=== PATIENT | female | born 1945 | race Caucasian/White ===

== ENCOUNTER 2016-07-07 07:28 | Emergency (ER) | payer MEDICARE, OTHER ==
[2016-07-07 08:23] LABS: Hematocrit 38.9 % (37.0-47.0); Hemoglobin 12.5 gm/dL (12.5-16.0); Mean Cell Volume 87.6 fl (78-100); Mean Corpuscular Hemoglobin 28.2 pg (27-31); Mean Corpuscular Hgb Conc 32.1 g/dl (32-36); Neutrophil # 8.8 K/mm3 (1.3-6.0); Neutrophil % 86.5 % (42-75.0); Platelet Count 325 K/mm3 (150-450); Red Blood Count 4.44 M/mm3 (4.2-5.4); Red Cell Distribution Width 13.6 % (11.5-14.0); White Blood Count 10.2 K/mm3 (4.0-10.5)
[2016-07-07 08:35] LABS: BUN/Creatinine Ratio 10.1 (9.0-21.6); Carbon Dioxide 26.2 mmol/L (24-32.6); Potassium 3.8 mmol/L (3.4-4.6)
[2016-07-07 08:36] LABS: Albumin * 3.3 gm/dl (3.4-5.0); Anion Gap 16.6 mmol/L (6.8-13.8); Bilirubin, Total 0.5 mg/dL (0.0-1.1); Calcium * 8.8 mg/dL (7.9-10.9); Total Protein 7.6 gm/dL (6.2-8.2)
[2016-07-07 09:03] VITALS: BP 146/82
--- NOTE | 2016-07-07 09:14 | ERNOTE ---
ENT HPI Date of Service: 07/07/16 Time Seen by Provider: 07/07/16 09:04 Source: patient, RN notes reviewed Exam Limitations: no limitations - Immun/Allergies/Home Medications Immunizations: IMMUNIZATION HX History of Influenza Vaccine No Hx Pneumococcal Vaccination No Allergies/Adverse Reactions: Allergies Allergy/AdvReac Type Severity Reaction Status Date / Time acetaminophen [From Tylenol] Allergy Severe Swelling Verified 07/07/16 08:05 of Throat aspirin Allergy Severe Anaphylaxis Verified 07/07/16 08:05 [From Aspirin Regimen [place]/Calcium] ibuprofen Allergy Severe Anaphylaxis Verified 07/07/16 08:05 NSAIDS (Non-Steroidal Allergy Severe Anaphylaxis Verified 07/07/16 08:05 Anti-Inflamma azithromycin [From Zithromax] AdvReac Mild MIGRAINES, Verified 07/07/16 08:05 DIARRHEA tramadol AdvReac Mild URINARY Verified 07/07/16 08:05 INCONTINENCE iv contrast AdvReac Intermediate PASSES OUT Uncoded 07/07/16 08:05 Home Medications: HOME MEDICATIONS Albuterol Sulfate [Albuterol Sulfate 2.5 MG/0.5ML] 1 vial IH Q4H PRN 05/28/15 [ Last Taken Unknown] Atorvastatin Calcium [Lipitor] 40 mg PO HS 05/28/15 [Last Taken Unknown] Eletriptan HBr [Relpax] 40 mg PO PRN PRN 05/28/15 [Last Taken Unknown] Esomeprazole Magnesium [Nexium] 40 mg PO BID 05/28/15 [Last Taken Unknown] Fluticasone Propionate [Flovent Hfa] 2 puff IH BID 05/28/15 [Last Taken Unknown] Ipratropium/Albuterol Sulfate [Combivent Respimat Inhal [place]] 1 puff IH QID [Last Taken Unknown] Levothyroxine Sodium [Synthroid] 25 mcg PO DAILY 05/28/15 [Last Taken Unknown] Losartan/Hydrochlorothiazide [Hyzaar 50-12.5 Tablet] 1 each PO DAILY 05/28/15 [ Last Taken Unknown] Metoprolol Tartrate [Lopressor] 25 mg PO BID 05/28/15 [Last Taken 08/17/15 07:00 ] Montelukast Sodium [Singulair] 10 mg PO HS 05/28/15 [Last Taken Unknown] Nortriptyline HCl 50 mg PO HS 05/28/15 [Last Taken Unknown] Salmeterol Xinafoate [Serevent Diskus] 1 puff IH BID 05/28/15 [Last Taken Unknown] metFORMIN HCL [Glucophage] 500 mg PO BIDWM 04/19/16 [Last Taken Unknown] - History of Present Illness Date (Duration): 07/05/16 Severity: Present: mild ENT Location: Present: throat Associated Symptoms - ENT: Reports: cough, sore throat, nasal congestion/ drainage. Denies: fever, voice change, drooling, facial pain/swelling, tooth pain, jaw swelling, change in hearing, ear drainage, headache, foreign body Review of Systems - Review of Systems Constitutional: Absent: fever, chills, diaphoresis, weakness, fatigue, malaise ENT: Present: sore throat. Absent: ear pain, ear discharge, nose pain Cardiology: Absent: chest pain, palpitations Gastrointestinal/Abdominal: Absent: nausea, vomiting, abdominal pain Musculoskeletal: Absent: back pain, muscle pain, muscle stiffness, neck pain Skin: Absent: rash, dryness All Other Systems: All systems neg except as marked - Patient's Past Medical History Patient History - Medical: Anxiety, Diabetes Type 2, Depression, GERD, Hypothyroidism, Migraines, Other Patient History - Cardiac/Respiratory: Asthma, COPD, Hypertension, Hyperlipidemia Patient History - Cancer: Cervical Patient History - Surgical Procedures: Cataracts, Colonoscopy, Cardiac stent, EGD, Hysterectomy, Tubal Ligation, Other Patient History - Other: None - Family History Father Family History - Medical: No pertinent hx Family History - Cardiac/Respiratory: No pertinent hx Mother Family History - Medical: - Social History Living Situations: home Alcohol Use: none Drug Use: none - Immunizations Hx Pneumococcal Vaccination: No History of Influenza Vaccine: No Physical Exam - Physical Exam General Appearance: Present: wd/wn, alert - with a, no apparent distress Ears, Nose, Throat: Present: normal ENT inspection, hearing grossly normal - [place], normal pharynx [place] will hours 20 minutes Neck: Present: normal inspection, nontender, supple, full range of motion Respiratory: Present: no respiratory distress - the, normal breath sounds, no accessory muscle use, chest nontender, lungs clear Cardiovascular/Chest: Present: regular rate, rhythm, no murmur, normal peripheral pulses Gastrointestinal/Abdominal: Present: normal bowel sounds, nontender, nondistended - bruises, soft, no organomegaly - Broda Back Exam: Present: normal inspection, normal range of motion, no CVA tenderness , no vertebral tenderness Extremity Exam: Present: normal inspection - [place], non-tender, no edema, normal range of motion - where he lives in Neurological Exam: Present: alert, oriented, normal mood/affect, no motor/ sensory deficits Skin Exam: Present: normal color, warm/dry - A Lymphatic Exam: Present: no adenopathy ED Progress - Results and Orders Patient's Lab Results:: I have reviewed the patient's lab results. - Vital Signs Patient's Vital Signs:: I have reviewed the patient's vital signs. Vital Signs: Vital Signs 07/07/16 07/07/16 08:01 09:01 Temperature 37.7 C H Pulse Rate 85 84 Respiratory 12 12 Rate Blood Pressure 141/88 146/82 O2 Sat by Pulse 93 98 Oximetry - Progress/Reassessment Chief Complaint: Sore Throat Progress:: Unchanged - patient doing well reviewed the labs most likely viral treated as such continue to push fluids follow-up family doctor in 2-3 days returning back to the ER with a change or worsening symptoms - Transfer of Care Expected Disposition: Discharge Departure Clinical Impression: Sore throat (viral), Bronchitis, Diabetes - Departure Disposition: Home self-care Condition: Stable Instructions: Acute Bronchitis, Viral Respiratory Infection, [id number] Additional Instructions: Follow-up with your primary care doctor in 2-3 Return back to the ER with any change or worsening symptoms Tylenol and Motrin as needed Referrals: Angel Kendall MD [Primary Care Provider] -
== END 2016-07-07 09:11 | disposition home or self-care (01) ==
LOC: ER 07:28
DX: J40 Bronchitis, not specified as acute or chronic (principal); J02.8 Acute pharyngitis due to other specified organisms; B97.89 Other viral agents as the cause of diseases classified elsewhere; E11.9 Type 2 diabetes mellitus without complications; Z85.41 Personal history of malignant neoplasm of cervix uteri; Z95.5 Presence of coronary angioplasty implant and graft; E03.9 Hypothyroidism, unspecified; J45.909 Unspecified asthma, uncomplicated; J44.9 Chronic obstructive pulmonary disease, unspecified; K21.9 Gastro-esophageal reflux disease without esophagitis; E78.5 Hyperlipidemia, unspecified; I10 Essential (primary) hypertension; F32.9 Major depressive disorder, single episode, unspecified; G43.909 Migraine, unspecified, not intractable, without status migrainosus

== ENCOUNTER 2016-08-18 07:51 | Inpatient (IN) | payer MEDICARE, OTHER ==
[~2016-08-18 07:51] MED LIST: MORPHINE SULFATE 15 MG TABLET.SA PO PRN; RINGERS SOLUTION,LACTATED 1,000 ML IV PRN; ROPIVACAINE HCL/PF 100 MG, EPINEPHrine 0.2 MG in NORMAL SALINE 100 ML IJ PRN; ceFAZolin SODIUM 1 GM VIAL IV PRN
--- OUTSIDE RECORDS SUMMARY | 2016-08-18 07:57 | XMS REPORT | Continuity of Care Document ---
:1945 Author Organization [facility] [place] [address] Care Team Providers Name Role Phone Unavailable Primary Care Provider Unavailable Source Comments This disclosure is being made pursuant to the [employer] program and maynot contain all information available regarding this patient.[facility] Active Allergies and Adverse Reactions Not on File Current Medications Be aware that medications may not be up to date as of this document. Alwaysverify current medications with the patient. Not on file Active Problems Not on file Social History Tobacco Use Types Packs/Day Years Used Date Never Assessed Plan of Care Health Maintenance Due Date Last Done Comments Retired-Pertussis Vaccine Adult 1966 Retired-Tetanus Vaccine Adult 1966 Mammogram 1987 Colonoscopy 1997 Well Adult Visit 1997 Zoster Vaccine 60+ 2007 Bone Density 2012 Retired-Pneumococcal 23 Vaccine-65+ yo 2012 Retired-INFLUENZA VACCINE 02/06/2015 Results from Last 3 Months Not on file
--- OUTSIDE RECORDS SUMMARY | 2016-08-18 07:57 | XMS REPORT | Continuity of Care Document ---
:1945 Author Organization [facility] ([facility]) [place] [address] Phone [phone] Care Team Providers Name Role Phone LianAngel key Primary Care Provider [phone] Source Comments This disclosure is being made pursuant to the Care Everywhere program, applicable federal and state laws, and may not contain all informaitonavailable regarding this patient.[facility] ([facility]) Active Allergies and Adverse Reactions Allergen Noted Date Severity Reactions Comments Acetaminophen Urticaria (Hives) Aspirin Nausea & Vomiting,Weakness Azithromycin 11/28/2015 Unknown Ibuprofen 09/04/2011 Upper Airway Edema Advil also Iodine OTHER PASSED OUT Current Medications Prescription Sig. Disp. Refills Start Date End Date Status buPROPion (WELLBUTRIN XL) Take 150 mg by Active 150 mg extended release mouth Every tablet morning. esomeprazole (NEXIUM) 40 Take 40 mg by Active mg EC capsule mouth daily. metoPROLol 25 mg XL Take 25 mg by Active tablet mouth 2 times daily. losartan-hydrochlorothiaz Take 1 Tab by Active tiffany (HYZAAR) 50-12.5 mg mouth daily. per tablet montelukast (SINGULAIR) Take 10 mg by Active 10 mg tablet mouth daily. simvastatin 80 mg tablet Take 80 mg by Active mouth every evening. dihydroergotamine use 1 [place] into Active (MIGRANAL) 0.5 mg/pump the nose as Act. nasal spray needed. salmeterol (SEREVENT Use 1 Puff by Active DISKUS) 50 mcg/dose inhalation 2 times diskus inhaler daily. fluticasone (FLOVENT HFA) Use 2 Puffs by Active 220 mcg/actuation inhaler inhalation every 12 hours. tiotropium (SPIRIVA) 18 Use 18 mcg by Active mcg inhalation capsule inhalation daily. ALBUTEROL SULFATE (PROAIR Use 8.5 g by Active HFA INH) inhalation as needed. cyanocobalamin (VITAMIN Take 1,000 mcg by Active B-12) 1,000 mcg tablet mouth daily. magnesium citrate Take 296 mL by 296 mL 0 07/03/2015 Active solution mouth once. polyethylene glycol 3350 Take 2 scoops 510 g 11 11/20/2015 Active (MIRALAX) 17 gram/dose following powder breakfast, lunch, and dinner each day starting 3 days before. May be mixed in 16 oz of water, ice tea, or broth Active Problems Problem Noted Date Hypertension, essential 09/04/2011 Sleep apnea 09/04/2011 Overview: Awaiting fitting for CPAP GERD (gastroesophageal reflux disease) 09/04/2011 Overview: Nexium 40 mg BID Hypercholesterolemia 09/04/2011 Asthma 09/04/2011 Generalized headaches 09/04/2011 Migraines 09/04/2011 History of cervical cancer 09/04/2011 Overview: THOR 1989 Depression 09/04/2011 Social History Tobacco Use Types Packs/Day Years Used Date Former Smoker Cigarettes 0.5 10 Quit: 11/29/1983 Smokeless Tobacco: Never Used Alcohol Use Drinks/Week oz/Week Comments No Last Filed Vital Signs Vital Sign Reading Time Taken Blood Pressure 147/75 04/19/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 Pulse 72 04/19/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 Temperature 36.7 C (98.1 F) 04/19/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 Respiratory Rate 20 04/19/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 Height 1.499 m (4' 11.02") 07/03/2015 12:08 PM 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
--- NOTE | 2016-08-18 10:03 | PREOP NOTE ---
Preoperative Progress Note - Preoperative Changes Changes to Preop Condition?: No Changes
[2016-08-18] MEDS ORDERED: RINGERS SOLUTION,LACTATED 1,000 ML IV ONE ×2 (10:30→11:35)
[2016-08-18] MEDS: TRANEXAMIC ACID 1,000 MG in NORMAL SALINE 100 ML IV PRN ×2 (11:36→12:14)
[2016-08-18] MEDS ORDERED: MAGNESIUM HYDROXIDE 30 ML UDC PO PRN (12:44)
[2016-08-18] MEDS ORDERED: ONDANSETRON HCL/PF 2 MG/ML VIAL IV PRN (12:44)
[2016-08-18] MEDS ORDERED: diphenhydrAMINE HCL 50 MG/ML VIAL IV PRN (12:44)
[2016-08-18] MEDS ORDERED: PROMETHAZINE HCL 5 MG in DEXTROSE 5 % IN WATER 50 ML IV PRN ×2 (12:44)
[2016-08-18] MEDS ORDERED: ZOLPIDEM TARTRATE 5 MG TABLET PO PRN (12:44)
[2016-08-18] MEDS ORDERED: MAG HYDROX/ALUMINUM HYD/SIMETH 30 ML UDC PO PRN (12:44)
[2016-08-18] MEDS ORDERED: ELETRIPTAN HBR 40 MG PO PRN (12:47)
[2016-08-18] MEDS ORDERED: ALBUTEROL SULFATE 2.5 MG/3 ML VIAL.NEB IH PRN (12:47)
--- NOTE | 2016-08-18 12:50 | OR ---
Operative Report - Dictated Report Narrative: Date: 08/18/2016 Preoperative diagnosis: Right Knee degenerative joint disease. Postoperative diagnosis: Right Knee degenerative joint disease. Procedure: Right Total knee arthroplasty. Surgeon: Franc Parrish M.D. Development Lead: John Ash PA-C Anesthesia: Spinal with regional block and local periarticular joint injection. Complications: None Specimens: Bone for disposal. Estimated blood loss: Minimal. Tourniquet time: 80 Minutes at 325 millimeters of mercury. Retained implants: Depuy Attune size 5 right lugged cemented posterior stabilized femoral component. Size 4 fixed-bearing cemented tibial platform. 5 by 5 millimeter posterior stabilized cross-linked tibial insert. 35 millimeter medialized patella button. Indications: Mrs. Omalley is a 71-year-old female who has had long-standing right knee pain. This patient was followed in my clinic for period of time with significant complaints of right knee pain consistent with arthritic changes. They had failed conservative measures including, but not limited to, activity modification, passage of time, medications, and other conservative measures. Patient wished to proceed with surgical treatment. The risks, benefits, and alternatives were discussed in clinic. The risks of , blood clots, bleeding, infection, nerve/tendon blood vessel/ injury, malposition of components, intraoperative fracture, postoperative limited range of motion, persistent pain, failure of components, and need for additional procedures. Patient wished to proceed consent was obtained after answering all questions. Procedure: After marking the correct extremity on the floor, the patient was taken to the operating room. A timeout was performed. IV antibiotics consisting of Ancef were administered prior to the procedure. A regional followed by spinal anesthetic was induced by anesthesia on the operative table with all bony prominences well-padded. Nino catheter was placed, and a bump was placed under the operative side buttock. SCDs and MALLORIE hose were utilized on the nonoperative leg. A well-padded tourniquet was applied to the operative thigh. The operative leg was then pre-scrubbed with shreya escalona prepped, and draped in a standard sterile fashion. After exsanguinating the extremity with an Esmarch bandage, the tourniquet was inflated. After marking out the anterior knee for standard incision centered over the patella, the skin was incised and dissected down to the joint retinaculum. The joint retinaculum was marked out as well as the horizontal axis of the patella, and a standard medial parapatellar arthrotomy was then made. The most proximal aspect of the quadriceps tendon and the patella tendon insertion were protected from release. A partial synovectomy was performed as well as a resection of the infrapatellar fat pad. The distal femoral fat pad proximal to the trochlea was also resected using cautery. The soft tissues were elevated off the medial aspect of the proximal tibia using a Sky elevator ensuring that we did not transect the medial collateral ligament. Upon initial evaluation range of motion was approximately 0 degrees to 120 degrees of flexion. There were signs of advanced arthrosis in the medial and patellofemoral joint spaces. There were large marginal osteophytes which were removed with a rongeur. The knee was hyperflexed and the patella was tucked laterally. Protecting the surrounding soft tissues with Homans, an entry drill was placed down the femoral canal using Whitesides line for guidance into the entry point. The intramedullary femoral alignment bob was utilized in order to cut the distal femur in 5 degrees of valgus resecting 10 millimeters of bone. Next the distal femur was sized to a size 5. A posterior referencing guide was utilized to place the distal femoral cutting block in 3 degrees of external rotation. This was pinned into place. The rotation was confirmed both visually and based on anatomic landmarks. The 4 in 1 cutting jig of the appropriate size was utilized in order to make all bony cuts. The angle wing was used to ensure no notching. Retractors were utilized in order to protect surrounding soft tissues. This cut did not result in any excessive notching. We then cut the box centered over the distal femur. This allowed for resection of the anterior and posterior cruciate ligaments. I then turned my attention to the preparation of the tibia. Using an extra medullary tibial alignment bob, 4 millimeters of bone was resected off the medial articular surface. This was made perpendicular to the mechanical axis of the joint with the alignment bob centered over the ankle mortise. The alignment bob was checked and was noted to be parallel to the mechanical axis, centered over the medial one third of the tibial tubercle, paralleling the anterior surface of the tibia. We then turned our attention to the remaining meniscus and soft tissues. These were removed while protecting the surrounding ligaments and soft tissues. The marginal osteophytes off the anterior, posterior, medial, lateral aspects of the femur and tibia were removed. The tibia was sized out to a size 4. Next the tibia was drilled and punched in an externally rotated position. Next the trial femur and a series of tibial inserts were utilized in order to allow for full extension and maximal flexion. It was found that a 5 millimeter insert gave the best range of motion and stability at multiple flexion points as well as at full extension there was less than 2 mm of gapping both medially and laterally. There is minimal anterior translation with the knee at 90 degrees of flexion and no signs of being able to dislocate the knee. The patella was then prepared. The initial thickness was 23 millimeters. This was reamed down to 13 millimeters parallel to the anterior surface of the patella. It was sized out to a size 35 medialized patella button. This was then drilled and trialed. Without any medial restraint the patella tracked appropriately and did not sublux or dislocate. At this point, it was felt these were the appropriate sized implants, and all trials were removed. The standard periarticular joint injection consisting of ropivacaine and epinephrine were injected into the periarticular joint tissues. The bony surfaces were thoroughly irrigated with a pulsatile-suction saline irrigation device. A bone plug from the prior resected anterior chamfer cut was placed into the drill hole at the distal femur. The bony surfaces were then dried in preparation for placement of the implants. The cement was vacuum mixed per the chair's instructions. The cement was placed on the dry bony surfaces and posterior aspect of the implants. The implants were impacted into place, removing all extruded cement. At this point anesthesia administered tranexamic acid per protocol intravenously. The knee was placed in extension with axial loading with the trial insert while the cement cured. Once the cement cured, all remaining extruded cement was removed. The knee was placed through a range of motion with the trial insert to ensure appropriate range of motion and stability. Final range of motion was approximately 0 to 120 degrees. The knee was again thoroughly irrigated with pulsatile saline lavage. The final polyethylene insert was then impacted into place ensuring no retained soft tissues. The remaining periarticular joint injection was injected. A medium Hemovac drain was placed exiting superior laterally. The knee was then placed over a triangle and the arthrotomy was closed with interrupted #1 Vicryl after thoroughly irrigating the joint. The deep and subcutaneous tissues were closed with interrupted oh and 3-0 Vicryl respectively. Skin was closed with a running subcutaneous 3-0 Monocryl and prineo dressing. 4 x 4's, ABD, Sof-Rol, and a full leg Shemar wrap were applied. All sponge, needle, blade, and instrument counts were correct prior to closing the wounds. Postoperative condition: The patient was awoken and transferred to the postanesthesia care unit in stable condition. Plan is to be admitted to the inpatient medical/surgical floor postoperatively for 24 hours of IV antibiotics , physical therapy, occupational therapy, and medical comanagement. Patient will be weightbearing as tolerated with range of motion as tolerated. DVT prophylaxis will be with SCDs, MALLORIE hose, and pharmacological anticoagulation. Anticipated hospital stay is approximately 2-4 days.
[2016-08-18] MEDS: RINGERS SOLUTION,LACTATED 1,000 ML IV PRN ×2 (14:36→23:51)
[2016-08-18] MEDS: MORPHINE SULFATE 10 MG/0.5 ML SYRINGE PO PRN (15:51)
[2016-08-18] MEDS: metFORMIN HCL 500 MG TABLET PO SCH (16:27)
[2016-08-18] MEDS: ceFAZolin SODIUM 1 GM in DEXTROSE 5 % IN WATER 100 ML IV SCH ×4 (16:28→23:03)
[2016-08-18] MEDS: ALBUTEROL SULFATE/IPRATROPIUM 3 ML NEBU IH SCH ×3 (16:34→18:27)
[2016-08-18] MEDS: BUDESONIDE 0.5 MG/2 ML VIAL.NEB IH SCH (18:28)
[2016-08-18] MEDS: DULoxetine HCL 30 MG CAPSULE.SA PO SCH (20:35)
[2016-08-18] MEDS: MORPHINE SULFATE 15 MG TABLET.SA PO SCH (20:36)
[2016-08-18] MEDS: NORTRIPTYLINE HCL 25 MG CAPSULE PO SCH (20:36)
[2016-08-18] MEDS: PANTOPRAZOLE SODIUM 40 MG TABLET.EC PO SCH (20:36)
[2016-08-18] MEDS: MONTELUKAST SODIUM 10 MG TABLET PO SCH (20:37)
[2016-08-18] MEDS: SENNOSIDES/DOCUSATE SODIUM 1 TAB TABLET PO SCH (20:37)
[2016-08-18] MEDS: METOPROLOL TARTRATE 25 MG TABLET PO SCH (20:38)
[2016-08-18] MEDS: ROSUVASTATIN CALCIUM 10 MG TABLET PO SCH (20:38)
[2016-08-18] MEDS: SALMETEROL XINAFOATE IH SCH (20:47)
[2016-08-18] MEDS: HYDROmorphone HCL 1 MG/ML DISP.SYRIN IV PRN (22:57)
[2016-08-19] MEDS: MORPHINE SULFATE 10 MG/0.5 ML SYRINGE PO PRN ×3 (02:26→18:18)
[2016-08-19] MEDS: HYDROmorphone HCL 1 MG/ML DISP.SYRIN IV PRN ×2 (04:22→07:49)
[2016-08-19] MEDS: ceFAZolin SODIUM 1 GM in DEXTROSE 5 % IN WATER 100 ML IV SCH ×2 (04:45)
[2016-08-19 05:55] LABS: Hematocrit 31.8 % (37.0-47.0); Hemoglobin 10.2 gm/dL (12.5-16.0); Mean Cell Volume 87.1 fl (78-100); Mean Corpuscular Hemoglobin 27.9 pg (27-31); Mean Corpuscular Hgb Conc 32.1 g/dl (32-36); Mean Platelet Volume 9.2 fl (6.0-9.5); Platelet Count 295 K/mm3 (150-450); Red Blood Count 3.65 M/mm3 (4.2-5.4); Red Cell Distribution Width 13.6 % (11.5-14.0); White Blood Count 11.7 K/mm3 (4.0-10.5)
[2016-08-19 06:04] LABS: BUN/Creatinine Ratio 12.6 (9.0-21.6); Calcium * 8.1 mg/dL (7.9-10.9); Carbon Dioxide 28.7 mmol/L (24-32.6); Estimated Creat Clear 33.3; Potassium 3.7 mmol/L (3.4-4.6)
[2016-08-19] MEDS: BUDESONIDE 0.5 MG/2 ML VIAL.NEB IH SCH ×2 (06:09→19:33)
[2016-08-19] MEDS: ALBUTEROL SULFATE/IPRATROPIUM 3 ML NEBU IH SCH ×4 (06:10→19:30)
[2016-08-19] MEDS: PANTOPRAZOLE SODIUM 40 MG TABLET.EC PO SCH ×2 (07:44→21:33)
--- NOTE | 2016-08-19 08:12 | PN ---
Subjective - Date and Time Seen Date: 08/19/16 Time: 08:07 Subjective Narrative: Subjective: Reports difficulty sleeping and moderate pain. Was able to get to the chair with therapy. Voiding without any complications. Tolerating by mouth intake. Denies any nausea or vomiting. Denies calf pain. Physical exam: Alert and oriented to person, place and time Right lower Extremity: Palpable dorsalis pedis pulse. Sensation grossly intact to light touch. Dressings clean and dry. Able to flex and extend ankle and toes. No excessive drainage. Calf and thigh are soft and nontender. Assessment: Postop day 1 status post right total knee arthroplasty. Plan: Continue with physical and occupational therapy weightbearing as tolerated. Continue with anticoagulation. 24 hours postoperative prophylactic antibiotics. Pain control with goal to rely on oral medications. With her allergies she is unable to take Toradol and Percocet or [place] and thus we will increase her oral morphine in order to try to control her pain. Continue bowel regimen. Will need 6 weeks with walker or assitive device to protect joint while ambulating during the recovery process. Discharge planning. Discontinue drain and Nino catheter. Repeat labs in a.m. Objective - Vitals Vitals: Last Vital Signs Temp 36.9 C 08/19/16 02:00 Pulse 85 08/19/16 06:19 Resp 20 08/19/16 06:19 BP 153/77 08/19/16 02:00 Pulse Ox 90 08/19/16 06:10 - Abnormal Lab Findings Abnormal Lab Findings: Abnormal Lab Results 08/19/16 08/19/16 Range/Units 05:40 05:40 WBC 11.7 H (4.0-10.5) K/mm3 RBC 3.65 L (4.2-5.4) M/mm3 Hgb 10.2 L (12.5-16.0) gm/dL Hct 31.8 L (37.0-47.0) % Est GFR (Non-Af Amer) 56 L (60-130) mL/min Random Glucose 131 H (70-110) mg/dL Cauti Physician Documentation - Urinary Catheter Management 2-way Urethral Date of Insertion: 08/18/16 Time of Insertion: 10:45 Assessment/Plan - Problems/Diagnosis (1) Acute blood loss anemia Problem: Acute (2) Status post total right knee replacement Problem: Acute (3) Aftercare following right knee joint replacement surgery Problem: Acute (4) Diabetes Problem: Chronic Qualifiers: Diabetes mellitus type: type 2 (5) COPD (chronic obstructive pulmonary disease) Problem: Chronic (6) Hyperlipidemia Problem: Chronic (7) Hypertension Problem: Chronic (8) Depression Problem: Chronic (9) Hypothyroid Problem: Chronic (10) GERD (gastroesophageal reflux disease) Problem: Chronic (11) Tremor Problem: Chronic (12) Pulmonary hypertension Problem: Chronic
[2016-08-19] MEDS: RINGERS SOLUTION,LACTATED 1,000 ML IV PRN ×2 (08:51→13:43)
--- NOTE | 2016-08-19 09:02 | PN ---
Subjective - Date and Time Seen Date: 08/19/16 Time: 09:01 Subjective Narrative: Patient is sleepy. has not had PT yet. Tmax 37.7. Objective - Review of Systems Generalized/Overall Review: Reports: Fever - low grade. Denies: Chills EENTM: Reports: No Symptoms Reported Respiratory: Denies: Cough, Shortness of Breath Cardiac: Denies: Chest Pain, Edema, Palpitations Abdominal: Denies: Nausea, Vomiting Genitourinary Symptoms: Denies: Urgency, Frequency Musculoskeletal Complaints: Reports: Joint Pain - Vitals Vitals: Last Vital Signs Temp 36.9 C 08/19/16 02:00 Pulse 85 08/19/16 06:19 Resp 20 08/19/16 06:19 BP 153/77 08/19/16 02:00 Pulse Ox 90 08/19/16 06:10 - Abnormal Lab Findings Abnormal Lab Findings: Abnormal Lab Results 08/19/16 08/19/16 Range/Units 05:40 05:40 WBC 11.7 H (4.0-10.5) K/mm3 RBC 3.65 L (4.2-5.4) M/mm3 Hgb 10.2 L (12.5-16.0) gm/dL Hct 31.8 L (37.0-47.0) % Est GFR (Non-Af Amer) 56 L (60-130) mL/min Random Glucose 131 H (70-110) mg/dL - Exam Constitutional: Present: Alert, Oriented x3, Cooperative ENT Exam: Present: hearing grossly normal Neck: Present: supple Breasts: Present: Exam deferred Respiratory: Present: decreased breath sounds, No rales, No wheezing Cardiovascular/Chest: Present: regular rate, rhythm, no JVD, no murmur Abdomen: Present: Normal bowel sounds, soft, nontender, nondistended Extremity: Present: no pedal edema, no calf tenderness Cauti Physician Documentation - Urinary Catheter Management 2-way Urethral Date of Insertion: 08/18/16 Time of Insertion: 10:45 Assessment/Plan Plan Narrative: POD # 1. For PT/OT. - Problems/Diagnosis (1) Status post total right knee replacement Problem: Acute (2) Acute blood loss anemia Problem: Acute Narrative: will monitor (3) COPD (chronic obstructive pulmonary disease) Problem: Chronic Qualifiers: COPD type: chronic bronchitis Chronic bronchitis type: unspecified Qualified Code(s): J42 - Unspecified chronic bronchitis Narrative: inhalers/nebulizers resumed. (4) Depression Problem: Chronic Narrative: TCA resumed (5) GERD (gastroesophageal reflux disease) Problem: Chronic Narrative: PPI on board (6) Hyperlipidemia Problem: Chronic Narrative: Crestor on board (7) Hypertension Problem: Chronic Narrative: losartan/metoprolol resumed (8) Diabetes mellitus type 2 in obese Problem: Chronic Narrative: metformin resumed.
[2016-08-19] MEDS: METOPROLOL TARTRATE 25 MG TABLET PO SCH ×2 (11:01→21:36)
[2016-08-19] MEDS: LOSARTAN POTASSIUM 50 MG TABLET PO SCH (11:01)
[2016-08-19] MEDS: metFORMIN HCL 500 MG TABLET PO SCH ×2 (11:01→18:13)
[2016-08-19] MEDS: MORPHINE SULFATE 15 MG TABLET.SA PO SCH ×2 (11:05→21:41)
[2016-08-19] MEDS: SALMETEROL XINAFOATE IH SCH ×2 (11:09→21:37)
[2016-08-19] MEDS: HYDROCHLOROTHIAZIDE 12.5 MG CAPSULE PO SCH (11:24)
[2016-08-19] MEDS: ENOXAPARIN SODIUM 40 MG/0.4 ML SYRG SC SCH (11:26)
[2016-08-19] MEDS: ROSUVASTATIN CALCIUM 10 MG TABLET PO SCH (21:30)
[2016-08-19] MEDS: DULoxetine HCL 30 MG CAPSULE.SA PO SCH (21:31)
[2016-08-19] MEDS: NORTRIPTYLINE HCL 25 MG CAPSULE PO SCH (21:32)
[2016-08-19] MEDS: MONTELUKAST SODIUM 10 MG TABLET PO SCH (21:37)
[2016-08-19] MEDS: SENNOSIDES/DOCUSATE SODIUM 1 TAB TABLET PO SCH (21:37)
[2016-08-20] MEDS: BUDESONIDE 0.5 MG/2 ML VIAL.NEB IH SCH ×2 (06:04→18:32)
[2016-08-20] MEDS: ALBUTEROL SULFATE/IPRATROPIUM 3 ML NEBU IH SCH ×4 (06:04→18:29)
[2016-08-20 07:10] LABS: Hematocrit 33.3 % (37.0-47.0); Hemoglobin 10.8 gm/dL (12.5-16.0); Mean Corpuscular Hemoglobin 27.9 pg (27-31); Mean Corpuscular Hgb Conc 32.4 g/dl (32-36); Mean Platelet Volume 9.6 fl (6.0-9.5); Platelet Count 301 K/mm3 (150-450); Red Blood Count 3.87 M/mm3 (4.2-5.4); Red Cell Distribution Width 13.6 % (11.5-14.0); White Blood Count 14.1 K/mm3 (4.0-10.5)
[2016-08-20 07:17] LABS: Anion Gap 14.1 mmol/L (6.8-13.8); BUN/Creatinine Ratio 9.4 (9.0-21.6); Calcium * 8.8 mg/dL (7.9-10.9); Carbon Dioxide 27.2 mmol/L (24-32.6); Estimated Creat Clear 40.3; Potassium 3.3 mmol/L (3.4-4.6)
[2016-08-20] MEDS: MORPHINE SULFATE 10 MG/0.5 ML SYRINGE PO PRN (07:17)
[2016-08-20] MEDS: PANTOPRAZOLE SODIUM 40 MG TABLET.EC PO SCH ×2 (07:20→20:55)
[2016-08-20] MEDS: LOSARTAN POTASSIUM 50 MG TABLET PO SCH (08:42)
[2016-08-20] MEDS: MORPHINE SULFATE 15 MG TABLET.SA PO SCH ×2 (08:43→20:57)
[2016-08-20] MEDS: metFORMIN HCL 500 MG TABLET PO SCH ×2 (08:43→16:27)
[2016-08-20] MEDS: HYDROCHLOROTHIAZIDE 12.5 MG CAPSULE PO SCH (08:43)
[2016-08-20] MEDS: METOPROLOL TARTRATE 25 MG TABLET PO SCH ×2 (08:43→20:57)
[2016-08-20] MEDS: SALMETEROL XINAFOATE IH SCH ×2 (08:45→21:06)
--- NOTE | 2016-08-20 12:29 | PN ---
Subjective - Date and Time Seen Date: 08/20/16 Time: 12:25 Subjective Narrative: Subjective: Reports difficulty better sleep and less nausea. Was able to get to walk in the blue with therapy. Voiding without any complications. Tolerating by mouth intake. Denies any nausea or vomiting. Denies calf pain. Physical exam: Alert and oriented to person, place and time Right lower Extremity: Palpable dorsalis pedis pulse. Sensation grossly intact to light touch. Dressings clean and dry. Able to flex and extend ankle and toes. No excessive drainage. Calf and thigh are soft and nontender. Assessment: Postop day 2 status post right total knee arthroplasty. Plan: Continue with physical and occupational therapy weightbearing as tolerated. Continue with anticoagulation. Pain control with goal to rely on oral medications. Pain is better controlled today. Continue bowel regimen. Will need 6 weeks with walker or assitive device to protect joint while ambulating during the recovery process. Discharge planning. Objective - Vitals Vitals: Last Vital Signs Temp 36.8 C 08/20/16 06:52 Pulse 99 08/20/16 08:42 Resp 18 08/20/16 06:52 BP 129/72 08/20/16 08:42 Pulse Ox 93 08/20/16 06:52 - Abnormal Lab Findings Abnormal Lab Findings: Abnormal Lab Results 08/20/16 08/20/16 Range/Units 06:40 06:40 WBC 14.1 H D (4.0-10.5) K/mm3 RBC 3.87 L (4.2-5.4) M/mm3 Hgb 10.8 L (12.5-16.0) gm/dL Hct 33.3 L (37.0-47.0) % MPV 9.6 H (6.0-9.5) fl Potassium 3.3 L (3.4-4.6) mmol/L Anion Gap 14.1 H (6.8-13.8) mmol/L Random Glucose 140 H (70-110) mg/dL Cauti Physician Documentation - Urinary Catheter Management 2-way Urethral Date of Insertion: 08/18/16 Time of Insertion: 10:45 Assessment/Plan - Problems/Diagnosis (1) Acute blood loss anemia Problem: Acute (2) Status post total right knee replacement Problem: Acute (3) Aftercare following right knee joint replacement surgery Problem: Acute (4) Diabetes Problem: Chronic Qualifiers: Diabetes mellitus type: type 2 (5) COPD (chronic obstructive pulmonary disease) Problem: Chronic Qualifiers: COPD type: chronic bronchitis Chronic bronchitis type: unspecified Qualified Code(s): J42 - Unspecified chronic bronchitis (6) Hyperlipidemia Problem: Chronic (7) Hypertension Problem: Chronic (8) Depression Problem: Chronic (9) Hypothyroid Problem: Chronic (10) GERD (gastroesophageal reflux disease) Problem: Chronic (11) Tremor Problem: Chronic (12) Pulmonary hypertension Problem: Chronic (13) Hypokalemia Problem: Acute (14) Diabetes mellitus type 2 in obese Problem: Chronic
[2016-08-20] MEDS ORDERED: POTASSIUM CHLORIDE 20 MEQ TABLET.SA PO ONE (12:30)
[2016-08-20] MEDS: ENOXAPARIN SODIUM 40 MG/0.4 ML SYRG SC SCH (12:49)
[2016-08-20] MEDS: HYDROmorphone HCL 1 MG/ML DISP.SYRIN IV PRN (18:43)
[2016-08-20] MEDS: SENNOSIDES/DOCUSATE SODIUM 1 TAB TABLET PO SCH (20:55)
[2016-08-20] MEDS: MONTELUKAST SODIUM 10 MG TABLET PO SCH (20:55)
[2016-08-20] MEDS: NORTRIPTYLINE HCL 25 MG CAPSULE PO SCH (20:56)
[2016-08-20] MEDS: DULoxetine HCL 30 MG CAPSULE.SA PO SCH (20:57)
[2016-08-20] MEDS: ROSUVASTATIN CALCIUM 10 MG TABLET PO SCH (20:57)
[2016-08-21] MEDS: BUDESONIDE 0.5 MG/2 ML VIAL.NEB IH SCH (05:59)
[2016-08-21] MEDS: ALBUTEROL SULFATE/IPRATROPIUM 3 ML NEBU IH SCH (06:00)
[2016-08-21] MEDS: PANTOPRAZOLE SODIUM 40 MG TABLET.EC PO SCH (07:35)
--- NOTE | 2016-08-21 08:21 | DS ---
(1) Acute blood loss anemia Problem: Acute (2) Status post total right knee replacement Problem: Acute (3) Aftercare following right knee joint replacement surgery Problem: Acute (4) Diabetes Problem: Chronic Qualifiers: Diabetes mellitus type: type 2 (5) COPD (chronic obstructive pulmonary disease) Problem: Chronic Qualifiers: COPD type: chronic bronchitis Chronic bronchitis type: unspecified Qualified Code(s): J42 - Unspecified chronic bronchitis (6) Hyperlipidemia Problem: Chronic (7) Hypertension Problem: Chronic (8) Depression Problem: Chronic (9) Hypothyroid Problem: Chronic (10) GERD (gastroesophageal reflux disease) Problem: Chronic (11) Tremor Problem: Chronic (12) Pulmonary hypertension Problem: Chronic (13) Hypokalemia Problem: Acute (14) Diabetes mellitus type 2 in obese Problem: Chronic Description of Stay: Mrs. Omalley was admitted to the floor after undergoing right total knee arthroplasty. Tolerated this well. Was admitted to the floor postoperatively for 24 hours of IV antibiotics, pain control, medical comanagement, and occupational and physical therapy. OT and PT were consulted to assist with activities of daily living and ambulation. Was made weightbearing as tolerated with range of motion as tolerated. Pain was initially controlled with IV regimen. This was transitioned to oral once tolerating a by mouth intake. Was resumed on home diet and medications. Had a Nino catheter inserted and the operating room which was discontinued on postoperative day 1. A drain was placed intraoperatively into the knee which was discontinued on postoperative day 1. Lovenox SCD and MALLORIE hose were utilized for DVT prophylaxis. Vital signs remained stable to the hospital course. Serial labs were obtained which showed a final hemoglobin of 10.8 grams. BMP was reviewed and was stable other than her potassium. She had low potassium which was replaced with oral supplement. Physical examination throughout the hospital course showed an extremity that had sensation that was intact to light touch, palpable pulses, a benign wound, motor intact to the toes, ankle, and knee. Knee range of motion was approximately 0 degrees to 60 degrees. Once an oral pain regimen was tolerated and physical therapy goals were met, it was felt that they were stable for discharge to home. Instructions: Continue with weightbearing as tolerated and range of motion as tolerated. Okay to shower the wound. Do not soak in a pool or tub. If there is any drainage keep dry in the shower and reports to clinic. Cover with dry gauze and tape only if there is drainage. Change every 2-3 days as needed. Continue with physical therapy. Resume home diet. Report any fever over 101.5 Fahrenheit, uncontrolled pain, increased drainage, foul odor of drainage, new or increased calf pain or shortness of breath, or any other significant complaints. A 325mg dialy aspirin will be started after finishing anticoagulation if not allergic. Continue with MALLORIE hose on the operative extremity until instructed otherwise. No driving until instructed otherwise. Follow up in approximately 10-14 days. Procedures Performed: see notes below List Procedures: Right total knee arthroplasty Discharge Disposition: Home self care Disposition: Home self-care Condition: Good Discharge Activity: Activity as tolerated, Weight bearing Discharge Diet: Consistent carbs Shelter Therapy: Physicial Therapy Referrals: Angel Kendall MD [Primary Care Provider] - Additional Patient Instructions (free text): Follow-up in the office with Dr. Parrish on 09-02-16@9:45am. [facility] at discharge, new. Please fax orders, face to face and call report upon discharge. Prescriptions (Any new or edited meds): Enoxaparin Sodium [Lovenox] 40 mg SC Q24H #7 disp.syrin Morphine Sulfate [Ms Contin] 15 mg PO Q12H #20 tablet.sa Sennosides/Docusate Sodium [Senokot-S] 2 tab PO HS #60 tablet Complete Home Medications List: Complete Home Medication List: Eletriptan HBr [Relpax] 40 mg PO PRN PRN 05/28/15 Esomeprazole Magnesium [Nexium] 40 mg PO BID 05/28/15 Fluticasone Propionate [Flovent Hfa] 2 puff IH BID 05/28/15 Ipratropium/Albuterol Sulfate [Combivent Respimat Inhal [place]] 1 puff IH QID Losartan/Hydrochlorothiazide [Hyzaar 50-12.5 Tablet] 1 each PO DAILY 05/28/15 Metoprolol Tartrate [Lopressor] 25 mg PO BID 05/28/15 Montelukast Sodium [Singulair] 10 mg PO HS 05/28/15 Nortriptyline HCl 50 mg PO HS 05/28/15 Salmeterol Xinafoate [Serevent Diskus] 1 puff IH BID 05/28/15 metFORMIN HCL [Glucophage] 500 mg PO BIDWM 04/19/16 Albuterol Sulfate 2.5 mg IH Q4H PRN 08/01/16 Atorvastatin Calcium [Lipitor] 40 mg PO HS 08/01/16 Blood-Glucose Meter [Blood Glucose Monitoring] 1 each MC DAILY 08/01/16 Duloxetine HCl [Cymbalta] 90 mg PO HS 08/01/16 Enoxaparin Sodium [Lovenox] 40 mg SC Q24H #7 disp.syrin 08/21/16 Morphine Sulfate [Morphine Sulfate Conc. Oral Solution] 20 mg PO Q2H PRN #0 syringe 08/21/16 Morphine Sulfate [Ms Contin] 15 mg PO Q12H #20 tablet.sa 08/21/16 Sennosides/Docusate Sodium [Senokot-S] 2 tab PO HS #60 tablet 08/21/16
[2016-08-21 08:32] VITALS: BP 142/76
--- NOTE | 2016-08-21 08:52 | PN ---
Subjective - Date and Time Seen Date: 08/21/16 Time: 08:47 Subjective Narrative: POD # 3. She is going home today after meeting her post PT/OT goals. Objective - Review of Systems Generalized/Overall Review: Denies: Chills, Fever EENTM: Reports: No Symptoms Reported Respiratory: Denies: Cough, Shortness of Breath Cardiac: Denies: Chest Pain, Edema, Palpitations Abdominal: Denies: Nausea, Vomiting Genitourinary Symptoms: Denies: Urgency, Frequency Musculoskeletal Complaints: Reports: Joint Pain - Vitals Vitals: Last Vital Signs Temp 37 C 08/21/16 08:30 Pulse 86 08/21/16 08:30 Resp 20 08/21/16 08:30 BP 142/76 08/21/16 08:30 Pulse Ox 92 08/21/16 08:30 - Exam Constitutional: Present: Alert, Oriented x3, Cooperative ENT Exam: Present: hearing grossly normal Neck: Present: supple Breasts: Present: Exam deferred Respiratory: Present: lungs clear, No rales, No wheezing Abdomen: Present: Normal bowel sounds, nontender, nondistended Extremity: Present: no pedal edema, no calf tenderness Cauti Physician Documentation - Urinary Catheter Management 2-way Urethral Date of Insertion: 08/18/16 Time of Insertion: 10:45 Assessment/Plan - Problems/Diagnosis (1) Status post total right knee replacement Problem: Acute Narrative: for discharge today. (2) Acute blood loss anemia Problem: Acute Narrative: stable (3) COPD (chronic obstructive pulmonary disease) Problem: Chronic Qualifiers: COPD type: chronic bronchitis Chronic bronchitis type: unspecified Qualified Code(s): J42 - Unspecified chronic bronchitis Narrative: stable (4) Depression Problem: Chronic Narrative: stable (5) GERD (gastroesophageal reflux disease) Problem: Chronic Narrative: stable (6) Hyperlipidemia Problem: Chronic (7) Hypertension Problem: Chronic Narrative: stable (8) Diabetes mellitus type 2 in obese Problem: Chronic
[2016-08-21] MEDS: MORPHINE SULFATE 15 MG TABLET.SA PO SCH (09:20)
[2016-08-21] MEDS: HYDROCHLOROTHIAZIDE 12.5 MG CAPSULE PO SCH (09:20)
[2016-08-21] MEDS: METOPROLOL TARTRATE 25 MG TABLET PO SCH (09:20)
[2016-08-21] MEDS: LOSARTAN POTASSIUM 50 MG TABLET PO SCH (09:20)
[2016-08-21] MEDS: metFORMIN HCL 500 MG TABLET PO SCH (09:20)
[2016-08-21] MEDS: SALMETEROL XINAFOATE IH SCH (09:21)
== END 2016-08-21 10:05 | disposition home health service (06) | DRG 470 ==
LOC: MS 07:51
PROVIDERS: ADMIT Orthopaedic Surgery; ATTEND Orthopaedic Surgery
PROC: 0SRC0J9 Replacement of Right Knee Joint with Synthetic Substitute, Cemented, Open Approach (ICD-10-PCS; principal; 2016-08-18 11:30)
DX: M17.11 Unilateral primary osteoarthritis, right knee (principal); D62 Acute posthemorrhagic anemia; J42 Unspecified chronic bronchitis; I10 Essential (primary) hypertension; E78.5 Hyperlipidemia, unspecified; E11.9 Type 2 diabetes mellitus without complications; Z87.891 Personal history of nicotine dependence

== ENCOUNTER 2017-03-30 05:51 | Inpatient (IN) | payer MEDICARE, OTHER ==
[2017-03-30] MEDS ORDERED: ceFAZolin SODIUM 1 GM VIAL IV PRN (06:00)
[2017-03-30] MEDS ORDERED: MORPHINE SULFATE 15 MG TABLET.SA PO PRN (06:00)
[2017-03-30] MEDS ORDERED: RINGER'S SOLUTION,LACTATED 1,000 ML IV PRN ×2 (06:00→09:52)
[2017-03-30] MEDS ORDERED: RINGER'S SOLUTION,LACTATED 1,000 ML IV ONE ×2 (08:54→09:35)
[2017-03-30] MEDS: ROPIVACAINE HCL/PF 100 MG, EPINEPHrine 0.2 MG in NORMAL SALINE 100 ML IJ PRN ×2 (08:55→09:45)
[2017-03-30] MEDS: TRANEXAMIC ACID 1,000 MG in NORMAL SALINE 100 ML IV PRN ×2 (08:55→09:45)
[2017-03-30] MEDS ORDERED: ZOLPIDEM TARTRATE 5 MG TABLET PO PRN (09:52)
[2017-03-30] MEDS ORDERED: HYDROmorphone HCL 1 MG/ML DISP.SYRIN IV PRN (09:52)
[2017-03-30] MEDS ORDERED: PROMETHAZINE HCL 5 MG in DEXTROSE 5 % IN WATER 50 ML IV PRN ×2 (09:52)
[2017-03-30] MEDS ORDERED: MAG HYDROX/ALUMINUM HYD/SIMETH 30 ML UDC PO PRN (09:52)
[2017-03-30] MEDS ORDERED: diphenhydrAMINE HCL 50 MG/ML VIAL IV PRN (09:52)
[2017-03-30] MEDS ORDERED: MAGNESIUM HYDROXIDE 30 ML UDC PO PRN (09:52)
[2017-03-30] MEDS ORDERED: RELPAX 40 MG PO PRN (09:54)
[2017-03-30] MEDS ORDERED: ALBUTEROL SULFATE 2.5 MG/0.5 ML VIAL.NEB IH PRN (09:54)
[2017-03-30] MEDS ORDERED: ALBUTEROL SULFATE/IPRATROPIUM 3 ML NEBU IH PRN (09:54)
[2017-03-30] MEDS ORDERED: DOCUSATE SODIUM 100 MG CAPSULE PO PRN (09:54)
--- NOTE | 2017-03-30 09:57 | OR ---
Operative Report - Dictated Report Narrative: Date: 03/30/2017 Preoperative diagnosis: Left Knee degenerative joint disease. Postoperative diagnosis: Left Knee degenerative joint disease. Procedure: Left Total knee arthroplasty. Surgeon: Franc Parrish M.D. Stonework Tracer: John Ash PA-C Anesthesia: Spinal with regional block and local periarticular joint injection. Complications: None Specimens: Bone for disposal. Estimated blood loss: Minimal. Tourniquet time: 75 Minutes at 325 millimeters of mercury. Retained implants: Depuy Attune size 5 left lugged cemented posterior stabilized femoral component. Size 4 fixed-bearing cemented tibial platform. 5 by 5 millimeter posterior stabilized cross-linked tibial insert. 35 millimeter medialized patella button. Indications: Mrs. Omalley is a 71-year-old female who has had long-standing left knee pain and arthrosis. This patient was followed in my clinic for period of time with significant complaints of left knee pain consistent with arthritic changes. She had failed conservative measures including, but not limited to, activity modification, passage of time, medications, and other conservative measures. Patient wished to proceed with surgical treatment. The risks, benefits, and alternatives were discussed in clinic. The risks of , blood clots, bleeding, infection, nerve/tendon blood vessel/ injury, malposition of components, intraoperative fracture, postoperative limited range of motion, persistent pain, failure of components, and need for additional procedures. Patient wished to proceed consent was obtained after answering all questions. Procedure: After marking the correct extremity on the floor, the patient was taken to the operating room. A timeout was performed. IV antibiotics consisting of Ancef were administered prior to the procedure. A regional followed by spinal anesthetic was induced by anesthesia, per my request, on the operative table with all bony prominences well-padded. Nino catheter was placed, and a bump was placed under the operative side buttock. SCDs and MALLORIE hose were utilized on the nonoperative leg. A well-padded tourniquet was applied to the operative thigh. The operative leg was then pre-scrubbed with alcohol prepped, and draped in a standard sterile fashion. After exsanguinating the extremity with an Esmarch bandage, the tourniquet was inflated. After marking out the anterior knee for standard incision centered over the patella, the skin was incised and dissected down to the joint retinaculum. The joint retinaculum was marked out as well as the horizontal axis of the patella, and a standard medial parapatellar arthrotomy was then made. The most proximal aspect of the quadriceps tendon and the patella tendon insertion were protected from release. A partial synovectomy was performed as well as a resection of the infrapatellar fat pad. The distal femoral fat pad proximal to the trochlea was also resected using cautery. The soft tissues were elevated off the medial aspect of the proximal tibia using a Sky elevator ensuring that we did not transect the medial collateral ligament. Upon initial evaluation range of motion was approximately 0 degrees to 130 degrees of flexion. There were signs of advanced arthrosis in the medial and patellofemoral joint spaces. The knee was hyperflexed and the patella was tucked laterally. Protecting the surrounding soft tissues with Homans, an entry drill was placed down the femoral canal using Whitesides line for guidance into the entry point. The intramedullary femoral alignment bob was utilized in order to cut the distal femur in 5 degrees of valgus resecting 10 millimeters of bone. Next the distal femur was sized to a size 5. A posterior referencing guide was utilized to place the distal femoral cutting block in 3 degrees of external rotation. This was pinned into place. The rotation was confirmed both visually and based on anatomic landmarks. The 4 in 1 cutting jig of the appropriate size was utilized in order to make all bony cuts. The angle wing was used to ensure no notching. Retractors were utilized in order to protect surrounding soft tissues. This cut did not result in any excessive notching. We then cut the box centered over the distal femur. This allowed for resection of the anterior and posterior cruciate ligaments. I then turned my attention to the preparation of the tibia. Using an extra medullary tibial alignment bob, 4 millimeters of bone was resected off the medial articular surface. This was made perpendicular to the mechanical axis of the joint with the alignment bob centered over the ankle mortise. The alignment bob was checked and was noted to be parallel to the mechanical axis, centered over the medial one third of the tibial tubercle, paralleling the anterior surface of the tibia. We then turned our attention to the remaining meniscus and soft tissues. These were removed while protecting the surrounding ligaments and soft tissues. The marginal osteophytes off the anterior, posterior, medial, lateral aspects of the femur and tibia were removed. The tibia was sized out to a size 4. Next the tibia was drilled and punched in an externally rotated position. Next the trial femur and a series of tibial inserts were utilized in order to allow for full extension and maximal flexion. It was found that a 5 millimeter insert gave the best range of motion and stability at multiple flexion points as well as at full extension there was less than 2 mm of gapping both medially and laterally. There is minimal anterior translation with the knee at 90 degrees of flexion and no signs of being able to dislocate the knee. The patella was then prepared. The initial thickness was 23 millimeters. This was reamed down to 13 millimeters parallel to the anterior surface of the patella. It was sized out to a size 35 medialized patella button. This was then drilled and trialed. Without any medial restraint the patella tracked appropriately and did not sublux or dislocate. At this point, it was felt these were the appropriate sized implants, and all trials were removed. The standard periarticular joint injection consisting of ropivacaine and epinephrine were injected into the periarticular joint tissues. The bony surfaces were thoroughly irrigated with a pulsatile-suction saline irrigation device. A bone plug from the prior resected anterior chamfer cut was placed into the drill hole at the distal femur. The bony surfaces were then dried in preparation for placement of the implants. The cement was vacuum mixed per the spa director's instructions. The cement was placed on the dry bony surfaces and posterior aspect of the implants. The implants were impacted into place, removing all extruded cement. At this point anesthesia administered tranexamic acid per protocol intravenously. The knee was placed in extension with axial loading with the trial insert while the cement cured. Once the cement cured, all remaining extruded cement was removed. The knee was placed through a range of motion with the trial insert to ensure appropriate range of motion and stability. Final range of motion was approximately 0 to 125 degrees. The knee was again thoroughly irrigated with pulsatile saline lavage. The final polyethylene insert was then impacted into place ensuring no retained soft tissues. The remaining periarticular joint injection was injected. A medium Hemovac drain was placed exiting superior laterally. The knee was then placed over a triangle and the arthrotomy was closed with interrupted #1 Vicryl after thoroughly irrigating the joint. The deep and subcutaneous tissues were closed with interrupted 0 and 3-0 Vicryl respectively. Skin was closed with a running subcutaneous 3-0 Monocryl and Prineo Dermabond dressing. 4 x 4's, Sof-Rol, and a full leg Shemar wrap were applied. All sponge, needle, blade, and instrument counts were correct prior to closing the wounds. Postoperative condition: The patient was awoken and transferred to the postanesthesia care unit in stable condition. Plan is to be admitted to the inpatient medical/surgical floor postoperatively for 24 hours of IV antibiotics , physical therapy, occupational therapy, and medical comanagement. Patient will be weightbearing as tolerated with range of motion as tolerated. DVT prophylaxis will be with SCDs, MALLORIE hose, and pharmacological anticoagulation. Anticipated hospital stay is approximately 2-4 days.
--- NOTE | 2017-03-30 10:20 | OR ---
Anesthesia Procedure Note - Anesthesia Procedure Note Date of Service: 03/30/17 Narrative: Vital Signs - Last Taken Temp 37.1 C 03/30/17 07:46 Pulse 74 03/30/17 07:46 Resp 18 03/30/17 07:46 BP 156/85 03/30/17 07:46 Pulse Ox 96 03/30/17 07:46 O2 Oxygen Delivery Method Room Air 03/30/17 10:18 ANESTHESIA PROCEDURE NOTE Date of Procedure: 03/30/2017 Time of procedure: 8 AM. Performed by: GAIL Hernandez CRNA, MSN Director Of Corporate Communications: Flaca Paige RN. Preprocedure diagnosis: Left total knee arthroplasty, desired post op pain relief. Post procedure diagnosis: Same. Procedure: Left femoral nerve block. Indications: Post left total knee arthroplasty pain relief. Findings: See below. Details of the procedure: The patient was brought to OR #4 and placed in supine position. The patient's left femoral area was prepped with chlorhexidine and using ultrasound guidance the left femoral artery and nerve was identified and lidocaine 1% was infiltrated to the skin of the intended injection site. Under ultrasound guidance the femoral nerve was approached with visualization of a 2 inch shield block needle until a thigh/leg response was identified on nerve stimulator. Once the stimulator response was effective at less than 0.5 mV and greater than 0.3 mV with the needle visualized, the femoral nerve was surrounded with 30 mL bupivacaine 0.25% with 1-200,000 epinephrine. Please see radiology/ultrasound report for details and retained images of the procedure. EBL: 0 Fluids: N/A. Specimen: N/A. Post procedure condition: The patient tolerated the procedure well. No complications were noted. Thank you for this consultation. Noman Nix CRNA, CERTIFIED DENTAL ASSISTANT, MSN
[2017-03-30] MEDS: BUDESONIDE 0.5 MG/2 ML VIAL.NEB IH SCH ×2 (11:48→18:19)
[2017-03-30] MEDS: ceFAZolin SODIUM 1 GM in DEXTROSE 5 % IN WATER 100 ML IV SCH ×6 (11:59→22:51)
[2017-03-30] MEDS: PANTOPRAZOLE SODIUM 40 MG TABLET.EC PO SCH ×2 (11:59→20:20)
[2017-03-30] MEDS ORDERED: HYDROCHLOROTHIAZIDE 12.5 MG CAPSULE PO SCH (12:00)
[2017-03-30] MEDS: MORPHINE SULFATE 10 MG/0.5 ML SYRINGE PO PRN ×4 (13:43→20:21)
--- NOTE | 2017-03-30 15:57 | CONS ---
- Reason for consultation (1) Status post total left knee replacement Date of Service: 03/30/17 Reason for Consultation:: medical management HPI - General Date of Service: 03/30/17 Source: patient Exam Limitations: clinical condition - pist op - History of Present Illness Timing/Duration: 1/2 hour Associated Symptoms: other - pain, knee Allergies/Adverse Reactions: Allergies acetaminophen [From Tylenol] Allergy (Severe, Verified 03/30/17 06:46) Swelling of Throat aspirin [From Aspirin Regimen [place]/Calcium] Allergy (Severe, Verified 03/30/17 06:46) Anaphylaxis ibuprofen Allergy (Severe, Verified 03/30/17 06:46) Anaphylaxis NSAIDS (Non-Steroidal Anti-Inflamma Allergy (Severe, Verified 03/30/17 06:46) Anaphylaxis Iodinated Contrast- Oral and IV Dye Adverse Reaction (Intermediate, Verified 06:46) passes out azithromycin [From Zithromax] Adverse Reaction (Mild, Verified 03/30/17 06:46) MIGRAINES, DIARRHEA tramadol Adverse Reaction (Mild, Verified 03/30/17 06:46) URINARY INCONTINENCE, still takes though Home Medications: Home Medications Medication Instructions Recorded Last Taken Eletriptan HBr [Relpax] 40 mg PO DAILY PRN 05/28/15 Unknown Esomeprazole Magnesium [Nexium] 40 mg PO BID 05/28/15 03/29/17 Fluticasone Propionate [Flovent 2 puff IH BID 05/28/15 03/30/17 04:30 Hfa] Ipratropium/Albuterol Sulfate 1 puff IH QID PRN 05/28/15 Unknown [Combivent Respimat Inhal [place]] Losartan/Hydrochlorothiazide 1 each PO DAILY 05/28/15 03/30/17 04:30 [Hyzaar 50-12.5 Tablet] Metoprolol Tartrate [Lopressor] 25 mg PO BID 05/28/15 03/30/17 04:30 Montelukast Sodium [Singulair] 10 mg PO HS 05/28/15 03/29/17 Nortriptyline HCl 50 mg PO HS 05/28/15 03/29/17 Salmeterol Xinafoate [Serevent 1 puff IH BID 05/28/15 03/30/17 Diskus] metFORMIN HCL [Glucophage] 500 mg PO BIDWM 04/19/16 03/29/17 19:00 Albuterol Sulfate 2.5 mg IH Q4H PRN 08/01/16 Unknown Blood-Glucose Meter [Blood Glucose 1 each MC DAILY 08/01/16 Unknown Monitoring] Duloxetine HCl [Cymbalta] 90 mg PO HS 08/01/16 03/29/17 Atorvastatin Calcium [Lipitor] 20 mg PO DAILY 03/13/17 03/30/17 Docusate Sodium [Colace] 200 mg PO HS PRN 03/13/17 Unknown - Patient's Past Medical History Patient History - Medical: Anxiety, Diabetes Type 2, Depression, GERD, Hypothyroidism, Migraines, Other Patient History - Cardiac/Respiratory: Asthma, COPD, Hypertension, Hyperlipidemia Patient History - Cancer: Cervical Patient History - Surgical Procedures: Cataracts, Colonoscopy, Cardiac stent, EGD, Hysterectomy, Tubal Ligation, Other Patient History - Other: None LMP (females 10-50): Menopausal - Family History Father Family History - Medical: Family History - Cardiac/Respiratory: Coronary Heart Disease, Myocardial Infarction Family History - Cancer: Colon Mother Family History - Medical: Family History - Cardiac/Respiratory: Asthma Sister Family History - Medical: Diabetes Type 2 Insulin Dependent Grandfather-Maternal Family History - Medical: , No pertinent hx Family History - Cardiac/Respiratory: Myocardial Infarction Family History - Cancer: No pertinent family hx Grandfather-Paternal Family History - Medical: , History Unknown Family History - Cardiac/Respiratory: No pertinent hx Family History - Cancer: No pertinent family hx Grandmother-Maternal Family History - Medical: , History Unknown Family History - Cardiac/Respiratory: History Unknown Family History - Cancer: History Unknown Grandmother-Paternal Family History - Medical: , History Unknown Family History - Cardiac/Respiratory: History Unknown Family History - Cancer: History Unknown - Social History Living Situations: spouse Abuse History: No History of abuse Psych History: Hx of Anxiety, Hx of Depression Smoking Status: Former smoker Have you smoked in the past 12 months: No Do you dip or chew tobacco: No Alcohol Use: none Drug Use: none - Immunizations Hx Pneumococcal Vaccination: No History of Influenza Vaccine: No Procedures BLOOD VESSEL BIOPSY (01/24/05) BREAST DX PROCEDURE NEC (08/13/05) BRONCH/TRACH LAVAGE NEC (02/23/02) CARPAL TUNNEL RELEASE (11/11/04) CATARAC PHACOEMULS/ASPIR (04/05/12) CLOSED ENDOSCOPIC BIOPSY OF LARGE INTESTINE (05/06/04) DESTRUCT LARYNX LES NEC (02/23/02) ESOPHAGOGASTRODUODENOSCOPY [EGD] W/CLOSED BIOPSY (05/06/04) EXCISION OF ASCENDING COLON, ENDO, DIAGN (05/30/15) EXCISION OF TRANSVERSE COLON, ENDO, DIAGN (05/30/15) FIBER-OPTIC BRONCHOSCOPY (02/23/02) INSERT LENS AT CATAR EXT (04/05/12) LAPAROSCOP LYSIS-PERITONEAL ADHES (11/13/05) LAPAROSCOP REMOVE OVARIES/TUBES (05/06/04) LARYGNOSCOPY AND OTH TRACHEOSCOPY (02/23/02) OTHER ENDOSCOPY OF SM INTEST (02/23/02) PERCUTAN NEEDLE BIOPSY OF BREAST (08/13/05) REPAIR RIGHT METACARPOCARPAL JOINT, OPEN APPROACH (08/17/15) REPLACE OF R KNEE JT WITH SYNTH SUB, CEMENT, OPEN APPROACH (08/18/16) Medications - Medications Current Medications: Current Medications Budesonide (Pulmicort Respules) 0.5 mg IH BID DOUGLAS Stop: 04/29/17 12:01 Last Admin: 03/30/17 11:48 Dose: Not Given Tranexamic Acid 1,000 mg/ (Sodium Chloride) 110 mls @ 660 mls/hr IV ONCE PRN PRN Reason: Prior to Tourniquet Release Stop: 03/30/17 23:59 Last Admin: 03/30/17 09:45 Dose: 110 mls Ropivacaine 100 mg/Epinephrine HCl 0.2 mg/ Sodium Chloride 110.2 mls @ 0.01 mls /hr IJ PRN PRN PRN Reason: Joint Injection Stop: 03/30/17 23:59 Last Admin: 03/30/17 09:45 Dose: 110.2 mls Lactated Ringer's (Lactated Ringers) 1,000 mls @ 175 mls/hr IV .[id number] PRN PRN Reason: Keep Vein Open Stop: 03/30/17 23:59 Last Admin: 03/30/17 06:30 Dose: 175 mls/hr Cefazolin Sodium 1 gm/ (Dextrose/Water) 110 mls @ 200 mls/hr IV Q6H DOUGLAS PRN Reason: Protocol Stop: 03/31/17 00:24 Last Admin: 03/30/17 11:59 Dose: 200 mls/hr Morphine Sulfate (Ms Contin) 15 mg PO PREOP PRN PRN Reason: PREOP PAIN Stop: 03/30/17 23:59 Last Admin: 03/30/17 07:39 Dose: 15 mg Morphine Sulfate (Morphine Sulfate Conc. Oral Solution) 10 mg PO Q2H PRN PRN Reason: Moderate Pain Stop: 04/29/17 09:53 Last Admin: 03/30/17 13:43 Dose: 10 mg Pantoprazole Sodium (Protonix) 40 mg PO BID DOUGLAS Stop: 04/29/17 12:01 Last Admin: 03/30/17 11:59 Dose: 40 mg Review of Systems - Review of Systems Generalized/Overall Review: Absent: Chills, Fever EENTM: Present: No Symptoms Reported Respiratory: Absent: Shortness of Breath, Orthopnea Cardiac: Absent: Chest Pain, Palpitations Abdominal: Absent: Nausea, Vomiting Genitourinary: Absent: Urgency, Frequency Musculoskeletal: Present: Joint Pain Physical Examination - Exam Vital Signs: Vital Signs - Last Taken Temp 36.1 C L 03/30/17 11:32 Pulse 72 03/30/17 13:35 Resp 18 03/30/17 13:35 BP 148/71 03/30/17 13:35 Pulse Ox 95 03/30/17 13:35 O2 Oxygen Delivery Method Room Air Constitutional: Present: Alert, Oriented x3, Cooperative ENT Exam: Present: hearing grossly normal Eye Exam: bilateral eye: normal inspection, PERRL, EOMI Neck: Present: supple Respiratory: Present: normal breath sounds, No rales, No wheezing Cardiovascular/Chest: Present: regular rate, rhythm, no JVD, no murmur Abdomen: Present: Normal bowel sounds, soft, nontender, nondistended Extremity: Present: no calf tenderness, other - LLE- wrapped in DAREN bandage - Assessments/Findings (1) Status post total left knee replacement Diagnosis(s): fot PT/OT Problem: Acute (2) COPD (chronic obstructive pulmonary disease) Diagnosis(s): continue with home medications Problem: Chronic Qualifiers: COPD type: chronic bronchitis Chronic bronchitis type: unspecified Qualified Code(s): J42 - Unspecified chronic bronchitis (3) Diabetes mellitus type 2 in obese Diagnosis(s): continue with home medications Problem: Chronic (4) GERD (gastroesophageal reflux disease) Diagnosis(s): continue with home medications Problem: Chronic (5) Hyperlipidemia Diagnosis(s): continue with home medications Problem: Chronic (6) Hypertension Diagnosis(s): continue with home medications Problem: Chronic (7) Hypothyroid Diagnosis(s): continue with home medications Problem: Chronic (8) Pulmonary hypertension Diagnosis(s): contiue with home medications Problem: Chronic
[2017-03-30] MEDS: metFORMIN HCL 500 MG TABLET PO SCH (17:41)
[2017-03-30] MEDS: NORTRIPTYLINE HCL 25 MG CAPSULE PO SCH (20:18)
[2017-03-30] MEDS: METOPROLOL TARTRATE 25 MG TABLET PO SCH (20:19)
[2017-03-30] MEDS: MORPHINE SULFATE 15 MG TABLET.SA PO SCH (20:19)
[2017-03-30] MEDS: DULoxetine HCL 30 MG CAPSULE.SA PO SCH (20:19)
[2017-03-30] MEDS: ROSUVASTATIN CALCIUM 10 MG TABLET PO SCH (20:20)
[2017-03-30] MEDS: MONTELUKAST SODIUM 10 MG TABLET PO SCH (20:20)
[2017-03-30] MEDS: SENNOSIDES/DOCUSATE SODIUM 1 TAB TABLET PO SCH (20:20)
[2017-03-30] MEDS ORDERED: FORMOTEROL FUMARATE 20 MCG/2 ML VIAL IH SCH (21:00)
[2017-03-31] MEDS: MORPHINE SULFATE 10 MG/0.5 ML SYRINGE PO PRN ×3 (05:38→14:30)
[2017-03-31 05:46] LABS: Hematocrit 34.2 % (37.0-47.0); Hemoglobin 10.7 gm/dL (12.5-16.0); Mean Cell Volume 86.4 fl (78-100); Mean Corpuscular Hgb Conc 31.3 g/dl (32-36); Mean Platelet Volume 8.8 fl (6.0-9.5); Platelet Count 299 K/mm3 (150-450); Red Blood Count 3.96 M/mm3 (4.2-5.4); Red Cell Distribution Width 13.6 % (11.5-14.0); White Blood Count 11.3 K/mm3 (4.0-10.5)
[2017-03-31 06:00] LABS: Anion Gap 9.4 mmol/L (6.8-13.8); BUN/Creatinine Ratio 8.3 (9.0-21.6); Calcium * 8.5 mg/dL (7.9-10.9); Carbon Dioxide 30.3 mmol/L (24-32.6); Estimated Creat Clear 31.7; Potassium 3.7 mmol/L (3.4-4.6)
[2017-03-31] MEDS: FORMOTEROL FUMARATE 20 MCG/2 ML VIAL IH SCH ×2 (06:05→19:16)
[2017-03-31] MEDS: BUDESONIDE 0.5 MG/2 ML VIAL.NEB IH SCH ×2 (06:06→19:18)
[2017-03-31] MEDS ORDERED: MORPHINE SULFATE 2 MG/ML DISP.SYRIN IV PRN (07:48)
--- NOTE | 2017-03-31 08:02 | PN ---
Subjective - Date and Time Seen Date: 03/31/17 Time: 08:00 Subjective Narrative: Subjective: Reports pain is well-controlled compared to prior total knee. She has multiple allergies and we placed her back on the medication she was discharged last time but she states they are less effective. She has not been up with therapy she is sitting in the bed at this time. Tolerating by mouth intake. Denies any nausea or vomiting. Denies calf pain. Slept well. Physical exam: Alert and oriented to person, place and time Left lower Extremity: Palpable dorsalis pedis pulse. Sensation grossly intact to light touch. Dressings clean and dry. Able to flex and extend ankle and toes. No excessive drainage. Calf and thigh are soft and nontender. Assessment: Postop day 1 status post left total knee arthroplasty. Plan: Continue with physical and occupational therapy weightbearing as tolerated. Continue with anticoagulation. 24 hours postoperative prophylactic antibiotics. Pain control with goal to rely on oral medications - adjusted her IV as well as short acting oral medications in order to try to better control her pain. Continue bowel regimen. Will need 6 weeks with walker or assitive device to protect joint while ambulating during the recovery process. Discharge planning. Discontinue drain and Nino catheter. Repeat labs in a.m. Objective - Vitals Vitals: Last Vital Signs Temp 36.6 C 03/31/17 06:45 Pulse 84 03/31/17 06:45 Resp 18 03/31/17 06:45 BP 149/87 03/31/17 06:45 Pulse Ox 92 03/31/17 06:45 - Abnormal Lab Findings Abnormal Lab Findings: Abnormal Lab Results 03/31/17 03/31/17 Range/Units 05:40 05:40 WBC 11.3 H (4.0-10.5) K/mm3 RBC 3.96 L (4.2-5.4) M/mm3 Hgb 10.7 L (12.5-16.0) gm/dL Hct 34.2 L (37.0-47.0) % MCHC 31.3 L (32-36) g/dl Est GFR (Non-Af Amer) 53 L (60-130) mL/min BUN/Creatinine Ratio 8.3 L (9.0-21.6) Random Glucose 116 H (70-110) mg/dL Cauti Physician Documentation - Urinary Catheter Management Urethral (Nino) Date of Insertion: 03/30/17 Time of Insertion: 08:20 Assessment/Plan - Problems/Diagnosis (1) Status post total left knee replacement Problem: Acute (2) Acute blood loss anemia Problem: Acute (3) Hypokalemia Problem: Chronic (4) COPD (chronic obstructive pulmonary disease) Problem: Chronic Qualifiers: COPD type: chronic bronchitis Chronic bronchitis type: unspecified Qualified Code(s): J42 - Unspecified chronic bronchitis (5) Depression Problem: Chronic (6) Diabetes mellitus type 2 in obese Problem: Chronic (7) GERD (gastroesophageal reflux disease) Problem: Chronic (8) Hyperlipidemia Problem: Chronic (9) Hypertension Problem: Chronic (10) Hypothyroid Problem: Chronic (11) Pulmonary hypertension Problem: Chronic
[2017-03-31] MEDS: MORPHINE SULFATE 15 MG TABLET.SA PO SCH ×2 (08:31→20:54)
[2017-03-31] MEDS: HYDROCHLOROTHIAZIDE 12.5 MG CAPSULE PO SCH (08:32)
[2017-03-31] MEDS: METOPROLOL TARTRATE 25 MG TABLET PO SCH ×2 (08:32→20:55)
[2017-03-31] MEDS: PANTOPRAZOLE SODIUM 40 MG TABLET.EC PO SCH ×2 (08:33→20:55)
[2017-03-31] MEDS: LOSARTAN POTASSIUM 50 MG TABLET PO SCH (08:33)
[2017-03-31] MEDS: metFORMIN HCL 500 MG TABLET PO SCH ×2 (08:33→18:23)
--- NOTE | 2017-03-31 08:56 | PN ---
Subjective - Date and Time Seen Date: 03/31/17 Time: 08:47 Subjective Narrative: POD # 1. Afebrile. Tmax 36.6. Complaining of pain. Objective - Review of Systems Generalized/Overall Review: Denies: Weakness, Chills, Fever EENTM: Reports: No Symptoms Reported Respiratory: Denies: Cough, Shortness of Breath Cardiac: Denies: Chest Pain, Edema, Palpitations Abdominal: Denies: Nausea, Vomiting Genitourinary Symptoms: Denies: Urgency, Frequency Musculoskeletal Complaints: Reports: Joint Pain - Vitals Vitals: Last Vital Signs Temp 36.6 C 03/31/17 06:45 Pulse 84 03/31/17 08:33 Resp 18 03/31/17 06:45 BP 149/87 03/31/17 08:33 Pulse Ox 92 03/31/17 06:45 - Abnormal Lab Findings Abnormal Lab Findings: Abnormal Lab Results 03/31/17 03/31/17 Range/Units 05:40 05:40 WBC 11.3 H (4.0-10.5) K/mm3 RBC 3.96 L (4.2-5.4) M/mm3 Hgb 10.7 L (12.5-16.0) gm/dL Hct 34.2 L (37.0-47.0) % MCHC 31.3 L (32-36) g/dl Est GFR (Non-Af Amer) 53 L (60-130) mL/min BUN/Creatinine Ratio 8.3 L (9.0-21.6) Random Glucose 116 H (70-110) mg/dL - Exam Constitutional: Present: Alert, Oriented x3, Cooperative ENT Exam: Present: hearing grossly normal Respiratory: Present: normal breath sounds, No rales, No wheezing Cardiovascular/Chest: Present: regular rate, rhythm, no JVD Abdomen: Present: Normal bowel sounds, soft, nontender, nondistended Extremity: Present: no calf tenderness, pedal edema Cauti Physician Documentation - Urinary Catheter Management Urethral (Nino) Date of Insertion: 03/30/17 Time of Insertion: 08:20 Assessment/Plan - Problems/Diagnosis (1) Status post total left knee replacement Problem: Acute Narrative: POD # 1. Afebrile. continur with PT/OT. (2) COPD (chronic obstructive pulmonary disease) Problem: Chronic Qualifiers: COPD type: chronic bronchitis Chronic bronchitis type: unspecified Qualified Code(s): J42 - Unspecified chronic bronchitis Narrative: continue with inhalers/nebs/O2 (3) Diabetes mellitus type 2 in obese Problem: Chronic Narrative: continue with metformin (4) GERD (gastroesophageal reflux disease) Problem: Chronic Narrative: continue with protonix (5) Hyperlipidemia Problem: Chronic Narrative: continue with crestor (6) Hypertension Problem: Chronic Narrative: continue with losartan/HCTZ/metorprolol (7) Pulmonary hypertension Problem: Chronic Narrative: continue with inhalers/nebs.
[2017-03-31] MEDS ORDERED: LOSARTAN PO SCH (09:00)
[2017-03-31] MEDS ORDERED: HYDROCHLOROTHIAZIDE PO SCH (09:00)
[2017-03-31] MEDS: ENOXAPARIN SODIUM 40 MG/0.4 ML SYRG SC SCH (09:10)
[2017-03-31] MEDS: ONDANSETRON HCL/PF 2 MG/ML VIAL IV PRN (13:07)
[2017-03-31] MEDS: DULoxetine HCL 30 MG CAPSULE.SA PO SCH (20:54)
[2017-03-31] MEDS: NORTRIPTYLINE HCL 25 MG CAPSULE PO SCH (20:54)
[2017-03-31] MEDS: SENNOSIDES/DOCUSATE SODIUM 1 TAB TABLET PO SCH (20:55)
[2017-03-31] MEDS: MONTELUKAST SODIUM 10 MG TABLET PO SCH (20:55)
[2017-03-31] MEDS: ROSUVASTATIN CALCIUM 10 MG TABLET PO SCH (20:55)
[2017-04-01 05:58] LABS: Hemoglobin 11.1 gm/dL (12.5-16.0); Mean Cell Volume 85.2 fl (78-100); Mean Corpuscular Hgb Conc 31.7 g/dl (32-36); Platelet Count 299 K/mm3 (150-450); Red Blood Count 4.11 M/mm3 (4.2-5.4); Red Cell Distribution Width 13.5 % (11.5-14.0); White Blood Count 12.5 K/mm3 (4.0-10.5)
[2017-04-01] MEDS: BUDESONIDE 0.5 MG/2 ML VIAL.NEB IH SCH ×2 (05:59→19:26)
[2017-04-01] MEDS: FORMOTEROL FUMARATE 20 MCG/2 ML VIAL IH SCH ×2 (05:59→19:26)
[2017-04-01 06:05] LABS: Anion Gap 9.4 mmol/L (6.8-13.8); BUN/Creatinine Ratio 10.3 (9.0-21.6); Calcium * 8.8 mg/dL (7.9-10.9); Carbon Dioxide 29.2 mmol/L (24-32.6); Potassium 3.6 mmol/L (3.4-4.6)
[2017-04-01] MEDS: MORPHINE SULFATE 10 MG/0.5 ML SYRINGE PO PRN ×2 (07:49→13:11)
[2017-04-01] MEDS: ONDANSETRON HCL/PF 2 MG/ML VIAL IV PRN ×2 (07:51→13:12)
[2017-04-01] MEDS: ENOXAPARIN SODIUM 40 MG/0.4 ML SYRG SC SCH (07:51)
--- NOTE | 2017-04-01 08:02 | PN ---
Subjective - Date and Time Seen Date: 04/01/17 Time: 07:54 Subjective Narrative: Subjective: Reports pain is a little better today. Complains of some nause. Nursing states she has been sedated but still complaining of pain. Was able to walk in the room with therapy. Tolerating by mouth intake. Denies vomiting. Denies calf pain. Physical exam: Alert and oriented to person, place and time Left lower Extremity: Palpable dorsalis pedis pulse. Sensation grossly intact to light touch. Dressings clean and dry. Able to flex and extend ankle and toes. No excessive drainage. Calf and thigh are soft and nontender. Assessment: Postop day 2 status post left total knee arthroplasty. Plan: Continue with physical and occupational therapy weightbearing as tolerated. Continue with anticoagulation. Pain control with goal to rely on oral medications - will monitor for oversedation vs nausea with pain meds. She does not feel her nausea is directly connected to her pain med dosing. Continue bowel regimen. Will need 6 weeks with walker or assitive device to protect joint while ambulating during the recovery process. Discharge planning. If she does not progress with PT may consider Skilled care for short period of time. Objective - Vitals Vitals: Last Vital Signs Temp 35.9 C L 04/01/17 06:40 Pulse 91 04/01/17 06:40 Resp 22 H 04/01/17 06:40 BP 150/82 04/01/17 06:40 Pulse Ox 100 04/01/17 06:40 - Abnormal Lab Findings Abnormal Lab Findings: Abnormal Lab Results 04/01/17 04/01/17 Range/Units 05:45 05:45 WBC 12.5 H (4.0-10.5) K/mm3 RBC 4.11 L (4.2-5.4) M/mm3 Hgb 11.1 L (12.5-16.0) gm/dL Hct 35.0 L (37.0-47.0) % MCHC 31.7 L (32-36) g/dl Est GFR (Non-Af Amer) 54 L (60-130) mL/min Random Glucose 141 H (70-110) mg/dL Cauti Physician Documentation - Urinary Catheter Management Urethral (Nion) Date of Insertion: 03/30/17 Time of Insertion: 08:20 Date of Removal: 03/31/17 Time of Removal: 07:30 Assessment/Plan - Problems/Diagnosis (1) Status post total left knee replacement Problem: Acute (2) Acute blood loss anemia Problem: Acute (3) Hypokalemia Problem: Chronic (4) COPD (chronic obstructive pulmonary disease) Problem: Chronic Qualifiers: COPD type: chronic bronchitis Chronic bronchitis type: unspecified Qualified Code(s): J42 - Unspecified chronic bronchitis (5) Depression Problem: Chronic (6) Diabetes mellitus type 2 in obese Problem: Chronic (7) GERD (gastroesophageal reflux disease) Problem: Chronic (8) Hyperlipidemia Problem: Chronic (9) Hypertension Problem: Chronic (10) Pulmonary hypertension Problem: Chronic
--- NOTE | 2017-04-01 08:12 | PN ---
Subjective - Date and Time Seen Date: 04/01/17 Time: 08:09 Subjective Narrative: Patient feels better than yesterday. She does have some nausea. No coughing, dysuria, diarrhea. No calf tenderness. T max 37.7. Objective - Review of Systems Generalized/Overall Review: Denies: Weakness, Chills EENTM: Reports: No Symptoms Reported Respiratory: Denies: Cough, Shortness of Breath Cardiac: Denies: Chest Pain, Edema, Palpitations Abdominal: Reports: Nausea. Denies: Vomiting, Diarrhea Genitourinary Symptoms: Denies: Urgency, Frequency Musculoskeletal Complaints: Reports: Joint Pain - Vitals Vitals: Last Vital Signs Temp 35.9 C L 04/01/17 06:40 Pulse 91 04/01/17 06:40 Resp 22 H 04/01/17 06:40 BP 150/82 04/01/17 06:40 Pulse Ox 100 04/01/17 06:40 - Abnormal Lab Findings Abnormal Lab Findings: Abnormal Lab Results 04/01/17 04/01/17 Range/Units 05:45 05:45 WBC 12.5 H (4.0-10.5) K/mm3 RBC 4.11 L (4.2-5.4) M/mm3 Hgb 11.1 L (12.5-16.0) gm/dL Hct 35.0 L (37.0-47.0) % MCHC 31.7 L (32-36) g/dl Est GFR (Non-Af Amer) 54 L (60-130) mL/min Random Glucose 141 H (70-110) mg/dL - Exam Constitutional: Present: Alert, Oriented x3, Cooperative ENT Exam: Present: hearing grossly normal Neck: Present: supple Respiratory: Present: normal breath sounds, No rales, No wheezing Cardiovascular/Chest: Present: regular rate, rhythm, no JVD, no murmur Abdomen: Present: Normal bowel sounds, soft, nontender, nondistended Extremity: Present: no calf tenderness, pedal edema Cauti Physician Documentation - Urinary Catheter Management Urethral (Nino) Date of Insertion: 03/30/17 Time of Insertion: 08:20 Date of Removal: 03/31/17 Time of Removal: 07:30 Assessment/Plan - Problems/Diagnosis (1) Status post total left knee replacement Problem: Acute Narrative: POD # 2. Leukocytosis like reactive. continue with PT/OT. She says her pain is better controlled this morning. (2) Leukocytosis Problem: Acute Narrative: likely still reactive. (3) Acute blood loss anemia Problem: Acute Narrative: stable . will monitor (4) COPD (chronic obstructive pulmonary disease) Problem: Chronic Qualifiers: COPD type: chronic bronchitis Chronic bronchitis type: unspecified Qualified Code(s): J42 - Unspecified chronic bronchitis (5) Diabetes mellitus type 2 in obese Problem: Chronic Narrative: BS 141 . (6) GERD (gastroesophageal reflux disease) Problem: Chronic (7) Hyperlipidemia Problem: Chronic (8) Hypertension Problem: Chronic (9) Pulmonary hypertension Problem: Chronic
[2017-04-01] MEDS: PANTOPRAZOLE SODIUM 40 MG TABLET.EC PO SCH ×2 (09:11→21:12)
[2017-04-01] MEDS: HYDROCHLOROTHIAZIDE 12.5 MG CAPSULE PO SCH (09:11)
[2017-04-01] MEDS: LOSARTAN POTASSIUM 50 MG TABLET PO SCH (09:12)
[2017-04-01] MEDS: metFORMIN HCL 500 MG TABLET PO SCH ×2 (09:12→17:21)
[2017-04-01] MEDS: METOPROLOL TARTRATE 25 MG TABLET PO SCH ×2 (09:12→21:16)
[2017-04-01] MEDS: MORPHINE SULFATE 15 MG TABLET.SA PO SCH ×2 (09:14→21:11)
[2017-04-01] MEDS: SENNOSIDES/DOCUSATE SODIUM 1 TAB TABLET PO SCH (21:12)
[2017-04-01] MEDS: NORTRIPTYLINE HCL 25 MG CAPSULE PO SCH (21:13)
[2017-04-01] MEDS: DULoxetine HCL 30 MG CAPSULE.SA PO SCH (21:13)
[2017-04-01] MEDS: MONTELUKAST SODIUM 10 MG TABLET PO SCH (21:15)
[2017-04-01] MEDS: ROSUVASTATIN CALCIUM 10 MG TABLET PO SCH (21:15)
[2017-04-02] MEDS: MORPHINE SULFATE 10 MG/0.5 ML SYRINGE PO PRN ×2 (01:10→08:13)
[2017-04-02] MEDS: BUDESONIDE 0.5 MG/2 ML VIAL.NEB IH SCH ×2 (05:59→19:46)
[2017-04-02] MEDS: FORMOTEROL FUMARATE 20 MCG/2 ML VIAL IH SCH ×2 (05:59→19:46)
[2017-04-02] MEDS: LOSARTAN POTASSIUM 50 MG TABLET PO SCH (08:12)
[2017-04-02] MEDS: ENOXAPARIN SODIUM 40 MG/0.4 ML SYRG SC SCH (08:12)
[2017-04-02] MEDS: METOPROLOL TARTRATE 25 MG TABLET PO SCH (08:12)
[2017-04-02] MEDS: metFORMIN HCL 500 MG TABLET PO SCH ×2 (08:12→18:02)
[2017-04-02] MEDS: MORPHINE SULFATE 15 MG TABLET.SA PO SCH ×2 (08:13→21:28)
[2017-04-02] MEDS: PANTOPRAZOLE SODIUM 40 MG TABLET.EC PO SCH ×2 (08:13→21:30)
[2017-04-02] MEDS: HYDROCHLOROTHIAZIDE 12.5 MG CAPSULE PO SCH (08:13)
--- NOTE | 2017-04-02 08:14 | DS ---
(1) Status post total left knee replacement Problem: Acute (2) Acute blood loss anemia Problem: Acute (3) Hypokalemia Problem: Chronic (4) COPD (chronic obstructive pulmonary disease) Problem: Chronic Qualifiers: COPD type: chronic bronchitis Chronic bronchitis type: unspecified Qualified Code(s): J42 - Unspecified chronic bronchitis (5) Depression Problem: Chronic (6) Diabetes mellitus type 2 in obese Problem: Chronic (7) GERD (gastroesophageal reflux disease) Problem: Chronic (8) Hyperlipidemia Problem: Chronic (9) Hypertension Problem: Chronic (10) Pulmonary hypertension Problem: Chronic Description of Stay: Mrs. Juarez was admitted to the floor after undergoing left total knee arthroplasty. Tolerated this well. Was admitted to the floor postoperatively for 24 hours of IV antibiotics, pain control, medical comanagement, and occupational and physical therapy. OT and PT were consulted to assist with activities of daily living and ambulation. Was made weightbearing as tolerated with range of motion as tolerated. Pain was initially controlled with IV regimen. This was transitioned to oral once tolerating a by mouth intake. Was resumed on home diet and medications. Had a Nino catheter inserted and the operating room which was discontinued on postoperative day 1. A drain was placed intraoperatively into the knee which was discontinued on postoperative day 1. Lovenox SCD and MALLORIE hose were utilized for DVT prophylaxis. Vital signs remained stable to the hospital course. Serial labs were obtained which showed a final hemoglobin of 11.1 grams. BMP was reviewed and was stable. Physical examination throughout the hospital course showed an extremity that had sensation that was intact to light touch, palpable pulses, a benign wound, motor intact to the toes, ankle, and knee. Knee range of motion was approximately 10 degrees to 70 degrees. She has significant complaints of pain and felt that her MALLORIE hose were too tight which was suggested. She then was slow to progress with therapy and is not meeting her short-term goals and thus was felt that in order for her safety as well as to allow for additional time to meet her short-term goals she is being transferred to a nursing facility for additional therapy. Instructions: Continue with weightbearing as tolerated and range of motion as tolerated. It is okay to shower and get the wound wet as long as there is no drainage from the wound. Do not bathe or soak the wound. If there is any drainage from the wound keep the wound clean and dry and cover with dry gauze and tape. Change every 2-3 days as needed if there is any drainage. Cover wound while showering if there is any drainage. Continue with physical therapy. Resume home diet. She is to use her Polar Care when sedentary as much as tolerated. Keep the cooler full of ice. Report any fever over 101.5 Fahrenheit, uncontrolled pain, increased drainage, foul odor of drainage, new or increased calf pain or shortness of breath, or any other significant complaints. A 325mg dialy aspirin will be started after finishing anticoagulation if not allergic. Continue with MALLORIE hose on the operative extremity until instructed otherwise. No driving until instructed otherwise. Follow up in approximately 10-14 days. Procedures Performed: see notes below List Procedures: Left total knee arthroplasty [facility]charge Disposition: [facility] Disposition: [facility] Condition: Good Discharge Activity: Activity as tolerated, Weight bearing Discharge Diet: Consistent carbs Discharge Level of Care:: SNF - Snf Snf Therapy: Physicial Therapy Referrals: Angel Kendall MD [Primary Care Provider] - Additional Patient Instructions (free text): Follow-up in the office with Dr. Parrish on 04/14/17@9:45am. [facility]. Please call report and fax orders and face to face upon discharge. Prescriptions (Any new or edited meds): Enoxaparin Sodium [Lovenox] 40 mg SC Q24H #7 disp.syrin Morphine Sulfate [Ms Contin] 15 mg PO Q12H #10 tablet. Complete Home Medications List: Complete Home Medication List: Eletriptan HBr [Relpax] 40 mg PO DAILY PRN 05/28/15 Esomeprazole Magnesium [Nexium] 40 mg PO BID 05/28/15 Fluticasone Propionate [Flovent Hfa] 2 puff IH BID 05/28/15 Ipratropium/Albuterol Sulfate [Combivent Respimat Inhal [place]] 1 puff IH QID PRN 05/28/15 Losartan/Hydrochlorothiazide [Hyzaar 50-12.5 Tablet] 1 each PO DAILY 05/28/15 Metoprolol Tartrate [Lopressor] 25 mg PO BID 05/28/15 Montelukast Sodium [Singulair] 10 mg PO HS 05/28/15 Nortriptyline HCl 50 mg PO HS 05/28/15 Salmeterol Xinafoate [Serevent Diskus] 1 puff IH BID 05/28/15 metFORMIN HCL [Glucophage] 500 mg PO BIDWM 04/19/16 Albuterol Sulfate 2.5 mg IH Q4H PRN 08/01/16 Blood-Glucose Meter [Blood Glucose Monitoring] 1 each MC DAILY 08/01/16 Duloxetine HCl [Cymbalta] 90 mg PO HS 08/01/16 Atorvastatin Calcium [Lipitor] 20 mg PO DAILY 03/13/17 Docusate Sodium [Colace] 200 mg PO HS PRN 03/13/17 Enoxaparin Sodium [Lovenox] 40 mg SC Q24H #7 disp.syrin 04/02/17 Hydrochlorothiazide [Microzide] 12.5 mg PO DAILY capsule 04/02/17 Losartan Potassium [Cozaar] 50 mg PO DAILY tablet 04/02/17 Morphine Sulfate [Ms Contin] 15 mg PO Q12H #10 tablet.sa 04/02/17 Sennosides/Docusate Sodium [Senokot-S] 2 tab PO HS tablet 04/02/17 guaiFENesin [Mucinex] 600 mg PO Q12H PRN tablet.sa 04/02/17
--- NOTE | 2017-04-02 08:40 | PN ---
Subjective - Date and Time Seen Date: 04/02/17 Time: 08:37 Subjective Narrative: POD # 3. Afebrile. Tmax 36.9. Getting discharge today to [facility]. She is 96% on RA. Objective - Review of Systems Generalized/Overall Review: Denies: Weakness, Chills, Fever EENTM: Reports: No Symptoms Reported Respiratory: Denies: Cough, Shortness of Breath Cardiac: Denies: Chest Pain, Edema, Palpitations Abdominal: Denies: Nausea, Vomiting Genitourinary Symptoms: Denies: Urgency, Frequency Musculoskeletal Complaints: Reports: Joint Pain - Vitals Vitals: Last Vital Signs Temp 36.6 C 04/02/17 07:41 Pulse 82 04/02/17 08:12 Resp 22 H 04/02/17 07:41 BP 127/63 04/02/17 08:12 Pulse Ox 96 04/02/17 07:41 - Exam Constitutional: Present: Alert, Oriented x3, Cooperative ENT Exam: Present: hearing grossly normal Neck: Present: supple Breasts: Present: Exam deferred Respiratory: Present: decreased breath sounds, No rales, No wheezing Cardiovascular/Chest: Present: regular rate, rhythm, no JVD, no murmur Abdomen: Present: Normal bowel sounds, soft, nontender, nondistended Extremity: Present: no calf tenderness, pedal edema C[facility]i Physician Documentation - Urinary Catheter Management Urethral (Nino) Date of Insertion: 03/30/17 Time of Insertion: 08:20 Date of Removal: 03/31/17 Time of Removal: 07:30 Assessment/Plan Plan Narrative: Continue with PT/OT/DVT prophylaxis in NH. continue with her home medications. - Problems/Diagnosis (1) Status post total left knee replacement Problem: Acute (2) Acute blood loss anemia Problem: Acute (3) COPD (chronic obstructive pulmonary disease) Problem: Chronic Qualifiers: COPD type: chronic bronchitis Chronic bronchitis type: unspecified Qualified Code(s): J42 - Unspecified chronic bronchitis (4) Diabetes mellitus type 2 in obese Problem: Chronic (5) GERD (gastroesophageal reflux disease) Problem: Chronic (6) Hyperlipidemia Problem: Chronic (7) Hypertension Problem: Chronic (8) Pulmonary hypertension Problem: Chronic
[2017-04-02] MEDS ORDERED: NORMAL SALINE 250 ML IV PRN (13:37)
[2017-04-02] MEDS ORDERED: NORMAL SALINE 250 ML IV ONE (15:40)
[2017-04-02] MEDS: NORMAL SALINE 1,000 ML IV PRN (16:32)
[2017-04-02] MEDS ORDERED: traMADol HCL 50 MG TABLET PO PRN (17:58)
[2017-04-02] MEDS: NORTRIPTYLINE HCL 25 MG CAPSULE PO SCH (21:28)
[2017-04-02] MEDS: ROSUVASTATIN CALCIUM 10 MG TABLET PO SCH (21:29)
[2017-04-02] MEDS: DULoxetine HCL 30 MG CAPSULE.SA PO SCH (21:29)
[2017-04-02] MEDS: SENNOSIDES/DOCUSATE SODIUM 1 TAB TABLET PO SCH (21:29)
[2017-04-02] MEDS: MONTELUKAST SODIUM 10 MG TABLET PO SCH (21:30)
[2017-04-03] MEDS: NORMAL SALINE 1,000 ML IV PRN ×2 (01:00→09:03)
[2017-04-03 04:32] LABS: Urine Bilirubin 1 mg/dl (NEGATIVE); Urine Blood Negative /ul (NEGATIVE); Urine Ketone Negative (NEGATIVE); Urine Nitrite Negative (NEGATIVE); Urine Protein 15 mg/dL (NEGATIVE); Urine Specific Gravity >=1.030 SP.GR. (1.005-1.010); Urine Urobilinogen Normal (NORMAL); Urine pH 5.5 pH (5.0-7.0)
[2017-04-03 04:39] LABS: Urine Amorphous Sediment Few - 1+ (NONE-FEW); Urine Appearance Slightly Cloudy; Urine Bacteria None Seen; Urine Color Dark Yellow; Urine Mucus Few - 1+; Urine RBC 0-5 /hpf (0-5); Urine WBC 0-5 /hpf (0-5)
[2017-04-03] MEDS: FORMOTEROL FUMARATE 20 MCG/2 ML VIAL IH SCH (06:01)
[2017-04-03] MEDS: BUDESONIDE 0.5 MG/2 ML VIAL.NEB IH SCH (06:01)
[2017-04-03 06:06] LABS: Anion Gap 12.3 mmol/L (6.8-13.8); BUN/Creatinine Ratio 13.5 (9.0-21.6); Calcium * 8.2 mg/dL (7.9-10.9); Carbon Dioxide 27.5 mmol/L (24-32.6); Estimated Creat Clear 18.5; Potassium 3.8 mmol/L (3.4-4.6)
--- NOTE | 2017-04-03 08:37 | DS ---
(1) Status post total left knee replacement Problem: Acute (2) Acute blood loss anemia Problem: Acute (3) COPD (chronic obstructive pulmonary disease) Problem: Chronic Qualifiers: COPD type: chronic bronchitis Chronic bronchitis type: unspecified Qualified Code(s): J42 - Unspecified chronic bronchitis (4) Diabetes mellitus type 2 in obese Problem: Chronic (5) GERD (gastroesophageal reflux disease) Problem: Chronic (6) Hyperlipidemia Problem: Chronic (7) Hypertension Problem: Chronic (8) Pulmonary hypertension Problem: Chronic (9) Acute renal failure Diagnosis(s): prerenal Problem: Acute Description of Stay: Mrs. Juarez was admitted to the floor after undergoing left total knee arthroplasty. Tolerated this well. Was admitted to the floor postoperatively for 24 hours of IV antibiotics, pain control, medical comanagement, and occupational and physical therapy. OT and PT were consulted to assist with activities of daily living and ambulation. Was made weightbearing as tolerated with range of motion as tolerated. Pain was initially controlled with IV regimen. This was transitioned to oral once tolerating a by mouth intake. Was resumed on home diet and medications. Had a Nino catheter inserted and the operating room which was discontinued on postoperative day 1. A drain was placed intraoperatively into the knee which was discontinued on postoperative day 1. Lovenox SCD and MALLORIE hose were utilized for DVT prophylaxis. Vital signs remained stable to the hospital course. Serial labs were obtained which showed a final hemoglobin of 11.1 grams. BMP was reviewed and was stable. Physical examination throughout the hospital course showed an extremity that had sensation that was intact to light touch, palpable pulses, a benign wound, motor intact to the toes, ankle, and knee. Knee range of motion was approximately 10 degrees to 70 degrees. She has significant complaints of pain and felt that her MALLORIE hose were too tight which was suggested. She then was slow to progress with therapy and is not meeting her short-term goals and thus was felt that in order for her safety as well as to allow for additional time to meet her short-term goals she is being transferred to a nursing facility for additional therapy. Instructions: Continue with weightbearing as tolerated and range of motion as tolerated. It is okay to shower and get the wound wet as long as there is no drainage from the wound. Do not bathe or soak the wound. If there is any drainage from the wound keep the wound clean and dry and cover with dry gauze and tape. Change every 2-3 days as needed if there is any drainage. Cover wound while showering if there is any drainage. Continue with physical therapy. Resume home diet. She is to use her Polar Care when sedentary as much as tolerated. Keep the cooler full of ice. Report any fever over 101.5 Fahrenheit, uncontrolled pain, increased drainage, foul odor of drainage, new or increased calf pain or shortness of breath, or any other significant complaints. A 325mg dialy aspirin will be started after finishing anticoagulation if not allergic. Continue with MALLORIE hose on the operative extremity until instructed otherwise. No driving until instructed otherwise. Follow up in approximately 10-14 days. The above history is Orthopedic's discharge summary yesterday but this was cancelled due to patient's clinicial condition. 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 She was given IVF boluses and maintenance fluid. Her Morphine was stopped and tramadol was initiated PRN for pain as she is allergic to acetominophen. Her Cr this morning bumped up to 1.84 likely prerenal from her low BP yesterday. We will increase her IVF to 200 ml/hour and recheck her BMP this noontime and if with downward trend , will discharge her to [facility] for more PT/OT as initially planned by Orthopedics with encouragement of increase oral fluids. She is more awake and cooperating with PT this morning. ADDENDUM: Her Cr went down to 1.6. Her Her BP is 112/63. Her O2 saturation is 96% on RA. Will hold her metformin, Hyzaar, Metoprolol until Thursday and will repeat BMP on Thursday. Procedures Performed: see notes below List Procedures: left total knee arthroplasty Discharge Disposition: [facility] Disposition: [facility] Condition: Good Discharge Activity: Activity as tolerated Discharge Diet: Consistent carbs [facility] Therapy: Physicial Therapy, Occupation Therapy Referrals: Angel Kendall MD [Primary Care Provider] - Additional Patient Instructions (free text): Ice machine to operative leg as needed for comfort and whenever patient sedentary in chair. f/u with Dr Parrish on 04-14-17 @9:45am. Will see patient on same day of her Orthopedic follow up. Encourage patient to increase oral fluids. Will do BMP on Thursday. Prescriptions (Any new or edited meds): Enoxaparin Sodium [Lovenox] 40 mg SC Q24H #7 disp.syrin Losartan/Hydrochlorothiazide [Hyzaar 50-12.5 Tablet] 1 each PO DAILY #30 tablet metFORMIN HCL [Glucophage] 500 mg PO BIDWM #30 tablet Metoprolol Tartrate [Lopressor] 25 mg PO BID #30 tablet Morphine Sulfate [Ms Contin] 15 mg PO Q12H #10 tablet.sa traMADol HCL [Ultram] 50 mg PO Q6H PRN #30 tablet PRN Reason: Moderate Pain Complete Home Medications List: Complete Home Medication List: Eletriptan HBr [Relpax] 40 mg PO DAILY PRN 05/28/15 Esomeprazole Magnesium [Nexium] 40 mg PO BID 05/28/15 Fluticasone Propionate [Flovent Hfa] 2 puff IH BID 05/28/15 Ipratropium/Albuterol Sulfate [Combivent Respimat Inhal [place]] 1 puff IH QID PRN 05/28/15 Montelukast Sodium [Singulair] 10 mg PO HS 05/28/15 Nortriptyline HCl 50 mg PO HS 05/28/15 Salmeterol Xinafoate [Serevent Diskus] 1 puff IH BID 05/28/15 Albuterol Sulfate 2.5 mg IH Q4H PRN 08/01/16 Blood-Glucose Meter [Blood Glucose Monitoring] 1 each MC DAILY 08/01/16 Duloxetine HCl [Cymbalta] 90 mg PO HS 08/01/16 Atorvastatin Calcium [Lipitor] 20 mg PO DAILY 03/13/17 Docusate Sodium [Colace] 200 mg PO HS PRN 03/13/17 Enoxaparin Sodium [Lovenox] 40 mg SC Q24H #7 disp.syrin 04/02/17 Morphine Sulfate [Ms Contin] 15 mg PO Q12H #10 tablet.sa 04/02/17 Sennosides/Docusate Sodium [Senokot-S] 2 tab PO HS tablet 04/02/17 guaiFENesin [Mucinex] 600 mg PO Q12H PRN tablet.sa 04/02/17 Losartan/Hydrochlorothiazide [Hyzaar 50-12.5 Tablet] 1 each PO DAILY #30 tablet 04/03/17 Metoprolol Tartrate [Lopressor] 25 mg PO BID #30 tablet 04/03/17 metFORMIN HCL [Glucophage] 500 mg PO BIDWM #30 tablet 04/03/17 traMADol HCL [Ultram] 50 mg PO Q6H PRN #30 tablet 04/03/17 Amb Orders for Discharge: Basic Metabolic Panel Time Frame: 04/06/17, Location: Determined By Patient
[2017-04-03] MEDS: ENOXAPARIN SODIUM 40 MG/0.4 ML SYRG SC SCH (09:03)
[2017-04-03] MEDS: PANTOPRAZOLE SODIUM 40 MG TABLET.EC PO SCH (09:03)
[2017-04-03 09:08] VITALS: BP 112/63
[2017-04-03 12:09] LABS: Hemoglobin 9.4 gm/dL (12.5-16.0); Mean Cell Volume 87.7 fl (78-100); Mean Corpuscular Hemoglobin 27.5 pg (27-31); Mean Corpuscular Hgb Conc 31.3 g/dl (32-36); Mean Platelet Volume 9.5 fl (6.0-9.5); Neutrophil # 4.8 K/mm3 (1.3-6.0); Neutrophil % 71.7 % (42-75.0); Platelet Count 316 K/mm3 (150-450); Red Blood Count 3.42 M/mm3 (4.2-5.4); Red Cell Distribution Width 13.8 % (11.5-14.0); White Blood Count 6.8 K/mm3 (4.0-10.5)
[2017-04-03 12:18] LABS: Anion Gap 12.9 mmol/L (6.8-13.8); BUN/Creatinine Ratio 14.6 (9.0-21.6); Calcium * 8.4 mg/dL (7.9-10.9); Carbon Dioxide 25.9 mmol/L (24-32.6); Estimated Creat Clear 20.9; Potassium 3.8 mmol/L (3.4-4.6)
== END 2017-04-03 13:30 | DRG 470 ==
LOC: MS 05:51
PROVIDERS: ADMIT Orthopaedic Surgery; ATTEND Orthopaedic Surgery
PROC: 0SRD0J9 Replacement of Left Knee Joint with Synthetic Substitute, Cemented, Open Approach (ICD-10-PCS; principal; 2017-03-30 08:00)
DX: M17.0 Bilateral primary osteoarthritis of knee (principal); D62 Acute posthemorrhagic anemia; I27.0 Primary pulmonary hypertension; N17.9 Acute kidney failure, unspecified; E87.6 Hypokalemia; I10 Essential (primary) hypertension; E11.9 Type 2 diabetes mellitus without complications; E78.5 Hyperlipidemia, unspecified; E03.9 Hypothyroidism, unspecified; Z85.41 Personal history of malignant neoplasm of cervix uteri; Z79.84 Long term (current) use of oral hypoglycemic drugs
CPT/HCPCS: 27447; 36415; 73560; 80048; 81001; 85025; 85027; 87086; 94640; 97110; 97116; 97161; 97165; 97530; 97535; J2405